=== PATIENT | female | born 1980 | race Caucasian/White ===

== ENCOUNTER 2016-07-07 21:04 | Emergency (ER) | payer BC ==
--- NOTE | 2016-07-07 21:25 | EDM.PDOC ---
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 Past medical history: As per history of present illness and as reviewed below otherwise noncontributory. Surgical history: As per history of present illness and as reviewed below otherwise noncontributory. Social history: No reported history of drug or alcohol abuse. Family history: As per history of present illness and as reviewed below otherwise noncontributory. Physical exam: HEENT: Atraumatic, normocephalic, pupils reactive, negative for conjunctival pallor or scleral icterus, mucous membranes moist, throat clear, neck supple, nontender, trachea midline. Lungs: Clear to auscultation, breath sounds equal bilaterally, chest nontender. Heart: S1S2, regular, negative for clicks, rubs, or JVD. Abdomen: Soft, nondistended, nontender. Negative for masses or hepatosplenomegaly. Negative for costovertebral tenderness. Pelvis: Stable nontender. Genitourinary: Deferred. Rectal: Deferred. Extremities: Atraumatic, negative for cords or calf pain. Neurovascular unremarkable. Neuro: Awake, alert, oriented. Cranial nerves II through XII unremarkable. Cerebellum unremarkable. Motor and sensory unremarkable throughout. Exam nonfocal. Diagnostics: [] Lab as below Chest one view Therapeutics: [] Liter normal saline bolus Solu-Cortef 100 mg IV Levaquin 500 mg by mouth no Levaquin 500 mg by mouth daily #10 no refill Impression: [] UTI Fever Chronic history at baseline Definitive disposition and diagnosis as appropriate pending reevaluation and review of above. 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 - Past Surgical History Other Female Surgeries/Procedures: CS X3, 1 exploratory lap Social & Family History - Family History Family Medical History: Noncontributory - Tobacco Use Smoking Status *Q: Never Smoker Second Hand Smoke Exposure: No - Recreational Drug Use Recreational Drug Use: No ED ROS GENERAL - Review of Systems Review Of Systems: See Below ED EXAM, GENERAL - Physical Exam Exam: See Below Course - Vital Signs Last Recorded V/S: Last Vital Signs Temp 37.4 C 07/07/16 23:39 Pulse 88 07/07/16 23:39 Resp 16 07/07/16 23:39 BP 115/60 07/07/16 23:39 Pulse Ox 99 07/07/16 23:39 - Orders/Labs/Meds Orders: Active Orders 24 hr Category Date Time Status Chest 1V Frontal [CR] Stat Exams 07/07/16 22:05 Taken Chest w Cont [CT] Stat Exams 07/07/16 23:06 Taken CULTURE BLOOD [BC] Stat Lab 07/07/16 22:23 Received CULTURE BLOOD [BC] Stat Lab 07/07/16 22:35 Received CULTURE STREP A CONFIRMATION [RM] Stat Lab 07/07/16 21:30 Results CULTURE URINE [RM] Stat Lab 07/07/16 22:30 Received STREP SCRN A RAPID W CULT CONF [RM] Stat Lab 07/07/16 21:30 Results Blood Culture x2 Reflex Set [OM.PC] Stat Oth 07/07/16 22:13 Ordered Labs: Laboratory Tests 07/07/16 07/07/16 07/07/16 Range/Units 21:40 21:40 22:30 WBC 6.82 (4.0-11.0) K/uL RBC 4.01 L (4.30-5.90) M/uL Hgb 12.3 (12.0-16.0) g/dL Hct 36.2 (36.0-46.0) % MCV 90.3 (80.0-98.0) fL MCH 30.7 (27.0-32.0) pg MCHC 34.0 (31.0-37.0) g/dL RDW Std Deviation 43.3 (28.0-62.0) fl RDW Coeff of Nanci 13 (11.0-15.0) % Plt Count 217 (150-400) K/uL MPV 11.10 (7.40-12.00) fL Neut % (Auto) 73.9 (48.0-80.0) % Lymph % (Auto) 18.5 (16.0-40.0) % [place] % (Auto) 6.9 (0.0-15.0) % Eos % (Auto) 0.1 (0.0-7.0) % Baso % (Auto) 0.6 (0.0-1.5) % Neut # 5.0 (1.4-5.7) K/uL Lymph # 1.3 (0.6-2.4) K/uL [place] # 0.5 (0.0-0.8) K/uL Eos # 0.0 (0.0-0.7) K/uL Baso # 0.0 (0.0-0.1) K/uL Nucleated RBC % 0.0 /100WBC Nucleated RBCs # 0 K/uL Sodium 139 (136-146) mmol/L Potassium 3.6 (3.5-5.1) mmol/L Chloride 107 (98-110) mmol/L Carbon Dioxide 24 (21-31) mmol/L BUN 16 (6.0-23.0) mg/dL Creatinine 0.9 (0.6-1.5) mg/dL Est Cr Clr Drug Dosing 97.80 mL/min Estimated GFR (MDRD) > 60.0 ml/min Glucose 94 (60-110) mg/dL Calcium 8.8 (8.8-10.8) mg/dL Total Bilirubin 0.6 (0.1-1.5) mg/dL AST 18 (5-40) IU/L ALT 14 (8-54) IU/L Alkaline Phosphatase 38 L (40-150) Total Protein 6.6 (6.0-8.0) g/dL Albumin 3.9 (3.5-5.0) g/dL Globulin 2.7 (2.0-3.5) g/dL Albumin/Globulin Ratio 1.4 (1.3-2.8) Urine Color YELLOW Urine Appearance CLEAR Urine pH 7.0 (5.0-8.0) Ur Specific [place] 1.020 (1.001-1.035) Urine Protein NEGATIVE (NEGATIVE) mg/dL Urine Glucose (UA) NEGATIVE (NEGATIVE) mg/dL Urine Ketones NEGATIVE (NEGATIVE) mg/dL Urine Occult Blood TRACE-LYSED (NEGATIVE) Urine Nitrite POSITIVE H (NEGATIVE) Urine Bilirubin NEGATIVE (NEGATIVE) Urine Urobilinogen 1.0 (<2.0) EU/dL Ur Leukocyte Esterase SMALL (NEGATIVE) Urine RBC 0-1 (0-2/HPF) Urine WBC 0-1 (0-5/HPF) Ur Epithelial Cells FEW (NONE-FEW) Urine Bacteria 2+ H (NEGATIVE) Meds: Medications Discontinued Medications Generic Name Dose Route Start Last Admin Trade Name Freq PRN Reason Stop Dose Admin Acetaminophen 1,000 mg 07/07/16 21:33 07/07/16 21:50 Tylenol Extra Strength PO 07/07/16 21:34 1,000 mg ONETIME ONE Administration Hydrocortisone Sodium Succinate 100 mg 07/07/16 21:38 07/07/16 21:51 Solu-Cortef IVPUSH 07/07/16 21:39 100 mg ONETIME ONE Administration Sodium Chloride 1,000 mls @ 999 mls/hr 07/07/16 21:38 07/07/16 21:52 Normal Saline IV 07/07/16 22:38 999 mls/hr STAT ONE Administration Iopamidol 50 ml 07/07/16 23:10 Isovue-370 (76%) IVPUSH 07/07/16 23:11 ONETIME STA Levofloxacin 500 mg 07/07/16 23:17 07/07/16 23:38 Levaquin PO 07/07/16 23:18 500 mg ONETIME ONE Administration Departure - Departure Time of Disposition: 00:20 Disposition: Home, Self-Care 01 Condition: good Clinical Impression: UTI (urinary tract infection) Referrals: PCP,None [Primary Care Provider] - Forms: ED Department Discharge Additional Instructions: Medication as prescribed Return if symptoms persist or worsen or new concerning symptomatology develops Continue current home medications as directed Followup with primary care as needed The following information is given to patients seen in the emergency department who are being discharged to home. This information is to outline your options for follow-up care. We provide all patients seen in our emergency department with a follow-up referral. The need for follow-up, as well as the timing and circumstances, are variable depending upon the specifics of your emergency department visit. If you don't have a primary care physician on staff, we will provide you with a referral. We always advise you to contact your personal physician following an emergency department visit to inform them of the circumstance of the visit and for follow-up with them and/or the need for any referrals to a consulting specialist. The emergency department will also refer you to a specialist when appropriate. This referral assures that you have the opportunity for follow-up care with a specialist. All of these measure are taken in an effort to provide you with optimal care, which includes your follow-up. Under all circumstances we always encourage you to contact your private physician who remains a resource for coordinating your care. When calling for follow-up care, please make the office aware that this follow-up is from your recent emergency room visit. If for any reason you are refused follow-up, please contact the [facility] emergency department at and asked to speak to the emergency department charge nurse. - My Orders Last 24 Hours: My Active Orders 07/07/16 21:30 CULTURE STREP A CONFIRMATION [RM] Stat STREP SCRN A RAPID W CULT CONF [RM] Stat 07/07/16 22:05 Chest 1V Frontal [CR] Stat 07/07/16 22:13 Blood Culture x2 Reflex Set [OM.PC] Stat 07/07/16 22:23 CULTURE BLOOD [BC] Stat 07/07/16 22:30 CULTURE URINE [RM] Stat 07/07/16 22:35 CULTURE BLOOD [BC] Stat 07/07/16 23:06 Chest w Cont [CT] Stat - Assessment/Plan Last 24 Hours: My Active Orders 07/07/16 21:30 CULTURE STREP A CONFIRMATION [RM] Stat STREP SCRN A RAPID W CULT CONF [RM] Stat 07/07/16 22:05 Chest 1V Frontal [CR] Stat 07/07/16 22:13 Blood Culture x2 Reflex Set [OM.PC] Stat 07/07/16 22:23 CULTURE BLOOD [BC] Stat 07/07/16 22:30 CULTURE URINE [RM] Stat 07/07/16 22:35 CULTURE BLOOD [BC] Stat 07/07/16 23:06 Chest w Cont [CT] Stat
[2016-07-07] MEDS ORDERED: Acetaminophen 500 MG Tab PO ONE (21:33)
[2016-07-07] MEDS ORDERED: Hydrocortisone Sodium Succinate 100 MG/2 ML SDV IVPUSH ONE (21:38)
[2016-07-07] MEDS ORDERED: Sodium Chloride 0.9% 1,000 ML IV ONE (21:38)
[2016-07-07 22:06] LABS: CHLORIDE,CL 107 mmol/L (98-110); SODIUM,NA 139 mmol/L (136-146)
[2016-07-07] MEDS ORDERED: Iopamidol 755 Mg/ML 75 ML Bottle IVPUSH STA (23:10)
[2016-07-07] MEDS ORDERED: Levofloxacin 500 MG Tab PO ONE (23:17)
[2016-07-08 01:29] VITALS: BP 106/56
--- NOTE | 2016-07-08 15:50 | CR ---
EXAM DATE: 07/07/16 PATIENT'S AGE: 36 Patient: ALECIA COLEMAN Facility: [place], [place] Site . Site : 1980 Study: XRay Chest [id number]/2/2017 10:34:13 PM Ordering Physician: Lin Woodruff Final Report: Indication: Shortness of breath. Fever. Chest pain. Technique: Chest 1 view Comparison: 09/06/2011. Findings/Impression: Cardiovascular and mediastinum: Heart size and vasculature are normal in caliber and appearance. Mediastinum is within normal limits. Lungs and pleural space: No pleural effusions. Mildly increased interstitial markings. A 3.2 x 2.8 centimeter annular opacity in the right lung base suggestive of a cavitary lesion. Correlate with CT scan. Bones and soft tissues: No significant change. Dictated by Jeff Contreras MD @ 07/07/2016 10:40:00 PM Dictated by: Jeff Contreras MD @ 07/07/2016 22:40:10 (Electronic Signature) Report Signed by Proxy and Original Signed Document filed in the Medical Record. MTDD
--- NOTE | 2016-07-08 16:10 | CT ---
EXAM DATE: 07/07/16 PATIENT'S AGE: 36 Patient: ALECIA COLEMAN Facility: [place], [place] Site . Site : 1980 Study: CT Chest [id number]/2/2017 11:42:03 PM Ordering Physician: Lin Woodruff Final Report: INDICATION: COUGH/FEVER/SOB CT CHEST WITH CONTRAST TECHNIQUE: Multidetector CT imaging was performed through the chest following intravenous contrast administration using 50 mL Isovue 370. Coronal and sagittal reconstructions were generated. COMPARISON: None. FINDINGS: Lungs and airways: No infiltrates, nodules, or masses. Very mild biapical lung scarring, right slightly greater than left. Central airways are patent. No hilar lymphadenopathy. Pleura and pleural spaces: No pleural effusions or pneumothorax. Heart and mediastinum: Normal heart size. No significant pericardial effusion. No mediastinal lymphadenopathy. Vascular structures: Normal caliber thoracic aorta. Chest wall and axillae: No mass or axillary lymphadenopathy. Osseous structures: Normal for age. No acute fractures identified. Upper abdomen: Unremarkable. IMPRESSION: 1. No acute intrathoracic abnormality identified. 2. Very mild biapical lung scarring. WINTER MEZA MD [employer] Dictated by Earnest Meza MD @ 07/07/2016 11:50:58 PM Dictated by: Earnest Meza MD @ 07/07/2016 23:51:20 (Electronic Signature) Report Signed by Proxy and Original Signed Document filed in the Medical Record. [facility]ITAL[facility]ap[facility]
== END 2016-07-08 00:31 | disposition home or self-care (01) ==
LOC: MW.ED 21:04
DX: N39.0 Urinary tract infection, site not specified (principal); Z79.899 Other long term (current) drug therapy
CPT/HCPCS: 36415; 71010; 71260; 80053; 81001; 85025; 87040; 87081; 87086; 87088; 87186; 87804; 87880; 96361; 96374; 99284; A9270; J1720; J7040

== ENCOUNTER 2017-08-06 00:19 | Emergency (ER) | payer BC ==
[2017-08-06 00:28] VITALS: BP 115/69
--- NOTE | 2017-08-06 00:33 | EDM.PDOC ---
ED HPI GENERAL MEDICAL PROBLEM - General Chief Complaint: ENT Problem Stated Complaint: SORE THROAT Time Seen by Provider: 08/06/17 00:32 - History of Present Illness INITIAL COMMENTS - FREE TEXT/NARRATIVE: HISTORY AND PHYSICAL: History of present illness: Patient 37-year-old female presents concern of sore throat tactile fever worse over the last 24-48 hours Review of systems: As per history of present illness and below otherwise all systems reviewed and negative. Past medical history: As per history of present illness and as reviewed below otherwise noncontributory. Surgical history: As per history of present illness and as reviewed below otherwise noncontributory. Social history: No reported history of drug or alcohol abuse. Family history: As per history of present illness and as reviewed below otherwise noncontributory. Physical exam: HEENT: Atraumatic, normocephalic, pupils reactive, negative for conjunctival pallor or scleral icterus, mucous membranes moist, throat injected no peritonsillar fullness no ovular deviation no hot potato voice no trismus, neck supple, nontender, trachea midline. Lungs: Clear to auscultation, breath sounds equal bilaterally, chest nontender. Heart: S1S2, regular, negative for clicks, rubs, or JVD. Abdomen: Soft, nondistended, nontender. Negative for masses or hepatosplenomegaly. Negative for costovertebral tenderness. Pelvis: Stable nontender. Genitourinary: Deferred. Rectal: Deferred. Extremities: Atraumatic, negative for cords or calf pain. Neurovascular unremarkable. Neuro: Awake, alert, oriented. Cranial nerves II through XII unremarkable. Cerebellum unremarkable. Motor and sensory unremarkable throughout. Exam nonfocal. Diagnostics: Deferred Therapeutics: None Impression: #1 pharyngitis Definitive disposition and diagnosis as appropriate pending reevaluation and review of above. throat Pain Score (Numeric/FACES): 10 - Related Data Allergies Allergy/AdvReac Type Severity Reaction Status Date / Time No Known Allergies Allergy Verified 08/06/17 00:28 Home Meds: Home Meds Fludrocortisone [Florinef] 0.1 mg PO DAILY 02/22/15 [History] Hydrocortisone 20 mg PO DAILY 02/22/15 [History] Prasterone (DHEA)/Calcium Carb [DHEA] 1 tab PO DAILY 07/07/16 [History] Past Medical History - Past Health History Medical/Surgical History: Denies Medical/Surgical History [employer] History: Reports: Endocrine/Metabolic History: Reports: [place]'s Disease Other Endocrine/Metabolic History: Ernie's disease - Past Surgical History Other Female Surgeries/Procedures: CS X3, 1 exploratory lap Social & Family History - Family History Family Medical History: Noncontributory - Tobacco Use Smoking Status *Q: Never Smoker Second Hand Smoke Exposure: No - Caffeine Use Caffeine Use: Reports: Coffee Caffeine Use Comment: 1cup/day - Recreational Drug Use Recreational Drug Use: No ED ROS GENERAL - Review of Systems Review Of Systems: ROS reveals no pertinent complaints other than HPI. ED EXAM, GENERAL - Physical Exam Exam: See Below (See dictation) Course - Vital Signs Last Recorded V/S: Last Vital Signs Temp 36.1 C 08/06/17 00:25 Pulse 85 08/06/17 00:25 Resp 18 08/06/17 00:25 BP 115/69 08/06/17 00:25 Pulse Ox 100 08/06/17 00:25 Departure - Departure Time of Disposition: 00:31 Disposition: Home, Self-Care 01 Condition: Good Clinical Impression: Pharyngitis - Discharge Information Referrals: PCP,None [Primary Care Provider] - Additional Instructions: The following information is given to patients seen in the emergency department who are being discharged to home. This information is to outline your options for follow-up care. We provide all patients seen in our emergency department with a follow-up referral. The need for follow-up, as well as the timing and circumstances, are variable depending upon the specifics of your emergency department visit. If you don't have a primary care physician on staff, we will provide you with a referral. We always advise you to contact your personal physician following an emergency department visit to inform them of the circumstance of the visit and for follow-up with them and/or the need for any referrals to a consulting specialist. The emergency department will also refer you to a specialist when appropriate. This referral assures that you have the opportunity for followup care with a specialist. All of these measure are taken in an effort to provide you with optimal care, which includes your followup. Under all circumstances we always encourage you to contact your private physician who remains a resource for coordinating your care. When calling for followup care, please make the office aware that this follow-up is from your recent emergency room visit. If for any reason you are refused follow-up, please contact the [facility] emergency department at and asked to speak to the emergency department charge nurse. Augmentin is prescribed Tylenol as directed follow-up primary medical doctor return as needed as discussed
== END 2017-08-06 00:40 | disposition home or self-care (01) ==
LOC: MW.ED 00:19
DX: J02.9 Acute pharyngitis, unspecified (principal); Z79.899 Other long term (current) drug therapy
CPT/HCPCS: 99282

== ENCOUNTER 2017-08-06 09:44 | Emergency (ER) | payer BC ==
[2017-08-06] MEDS ORDERED: Ondansetron 4 MG Tab.DIS PO ONE (10:02)
[2017-08-06] MEDS ORDERED: Sodium Chloride 0.9% 10 ML Syringe FLUSH PRN (10:04)
[2017-08-06] MEDS ORDERED: Sodium Chloride 0.9% 2.5 ML Syringe FLUSH PRN (10:04)
[2017-08-06] MEDS ORDERED: Sodium Chloride 0.9% 500 ML IV ONE (10:05)
[2017-08-06] MEDS ORDERED: Ondansetron 4 MG/2 ML SDV IVPUSH ONE (10:05)
[2017-08-06] MEDS ORDERED: Ketorolac 30 MG/ML SDV IVPUSH ONE (10:20)
[2017-08-06] MEDS ORDERED: methylPREDNISolone Sodium Succinate 125 MG/2 ML SDV IVPUSH ONE (10:27)
[2017-08-06] MEDS ORDERED: Sodium Chloride 0.9% 500 ML IV SCH (10:30)
[2017-08-06 10:53] LABS: CHLORIDE,CL 104 mmol/L (98-107); SODIUM,NA 139 mmol/L (136-145)
--- NOTE | 2017-08-06 11:49 | EDM.PDOC ---
ED HPI GENERAL MEDICAL PROBLEM - General Chief Complaint: ENT Problem Stated Complaint: strep throat,vomitng Time Seen by Provider: 08/06/17 09:56 Source of Information: Reports: Patient History Limitations: Reports: No Limitations - History of Present Illness INITIAL COMMENTS - FREE TEXT/NARRATIVE: History of present illness: []Patient was seen last night for sore throat and started having vomiting and diarrhea shortly after. She was put on Augmentin had one dose but vomited and now feels very weak and tired. Patient has a history of Ernie's disease and is concerned that she was unable to take her steroids at home this morning. Review of systems: As per history of present illness and below otherwise all systems reviewed and negative. Past medical history: As per history of present illness and as reviewed below otherwise noncontributory. Surgical history: As per history of present illness and as reviewed below otherwise noncontributory. Social history: No reported history of drug or alcohol abuse. Family history: As per history of present illness and as reviewed below otherwise noncontributory. Physical exam: General: Well developed, well nourished in NAD HEENT: Atraumatic, normocephalic, pupils reactive, negative for conjunctival pallor or scleral icterus, mucous membranes moist, throat clear, neck supple, nontender, trachea midline. Lungs: Clear to auscultation, breath sounds equal bilaterally, chest nontender. Heart: S1S2, regular, negative for clicks, rubs, or JVD. Abdomen: Soft, nondistended, nontender. Negative for masses or hepatosplenomegaly. Negative for costovertebral tenderness. Pelvis: Stable nontender. Genitourinary: Deferred. Rectal: Deferred. Extremities: Atraumatic, negative for cords or calf pain. Neurovascular unremarkable. Neuro: Awake, alert, oriented. Cranial nerves II through XII unremarkable. Cerebellum unremarkable. Motor and sensory unremarkable throughout. Exam nonfocal. Diagnostics: []CBC elevated, chemistry normal strep was checked and was negative lactate normal Therapeutics: []Normal saline 500 L bolus given with Zofran and patient tolerated by mouth's after this. Impression: []Acute pharyngitis, vomiting diarrhea Plan: []Zofran, tramadol, continue Augmentin and increase fluids, Definitive disposition and diagnosis as appropriate pending reevaluation and review of above. 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: Endocrine/Metabolic History: Reports: [place]'s Disease Other Endocrine/Metabolic History: [place]'s disease - Past Surgical History Other Female Surgeries/Procedures: CS X3, 1 exploratory lap Social & Family History - Family History Family Medical History: Noncontributory - Tobacco Use Smoking Status *Q: Never Smoker Second Hand Smoke Exposure: No - Caffeine Use Caffeine Use: Reports: Other Caffeine Use Comment: 1cup/day - Recreational Drug Use Recreational Drug Use: No ED ROS GENERAL - Review of Systems Review Of Systems: See Below (See history of present illness) ED EXAM, GENERAL - Physical Exam Exam: See Below (See history of present illness) Course - Vital Signs Last Recorded V/S: Last Vital Signs Temp 96.6 F 08/06/17 09:58 Pulse 79 08/06/17 09:58 Resp 18 08/06/17 09:58 BP 143/70 H 08/06/17 09:58 Pulse Ox 99 08/06/17 09:58 - Orders/Labs/Meds Orders: Active Orders 24 hr Category Date Time Status CULTURE STREP A CONFIRMATION [] Stat Lab 08/06/17 10:20 Results STREP SCRN A RAPID W CULT CONF [] Stat Lab 08/06/17 10:20 Ordered Sodium Chloride 0.9% [Normal Saline] 500 ml Med 08/06/17 10:30 Active IV .BOLUS Sodium Chloride 0.9% [Saline Flush] Med 08/06/17 10:04 Active 10 ml FLUSH ASDIRECTED PRN Sodium Chloride 0.9% [Saline Flush] Med 08/06/17 10:04 Active 2.5 ml FLUSH ASDIRECTED PRN Saline Lock Insert [OM.PC] Stat Oth 08/06/17 10:04 Ordered Medication Orders Sodium Chloride (Normal Saline) 500 mls @ 999 mls/hr IV .BOLUS RUDDY Last Admin: 08/06/17 10:18 Dose: 999 mls/hr Sodium Chloride (Saline Flush) 10 ml FLUSH ASDIRECTED PRN PRN Reason: Keep Vein Open Sodium Chloride (Saline Flush) 2.5 ml FLUSH ASDIRECTED PRN PRN Reason: Keep Vein Open Labs: Laboratory Tests 08/06/17 08/06/17 08/06/17 Range/Units 10:15 10:15 10:59 WBC 13.58 H (4.0-11.0) K/uL RBC 4.50 (4.30-5.90) M/uL Hgb 13.7 (12.0-16.0) g/dL Hct 40.2 (36.0-46.0) % MCV 89.3 (80.0-98.0) fL MCH 30.4 (27.0-32.0) pg MCHC 34.1 (31.0-37.0) g/dL RDW Std Deviation 43.0 (28.0-62.0) fl RDW Coeff of Nanci 13 (11.0-15.0) % Plt Count 175 (150-400) K/uL MPV 10.80 (7.40-12.00) fL Neut % (Auto) 86.7 H (48.0-80.0) % Lymph % (Auto) 6.2 L (16.0-40.0) % [place] % (Auto) 6.3 (0.0-15.0) % Eos % (Auto) 0.7 (0.0-7.0) % Baso % (Auto) 0.1 (0.0-1.5) % Neut # (Auto) 11.8 H (1.4-5.7) K/uL Lymph # (Auto) 0.8 (0.6-2.4) K/uL [place] # (Auto) 0.9 H (0.0-0.8) K/uL Eos # (Auto) 0.1 (0.0-0.7) K/uL Baso # (Auto) 0.0 (0.0-0.1) K/uL Nucleated RBC % 0.0 /100WBC Nucleated RBCs # 0 K/uL Lactate 0.5 (0.20-2.00) mmol/L Sodium 139 (136-145) mmol/L Potassium 4.0 (3.5-5.1) mmol/L Chloride 104 (98-107) mmol/L Carbon Dioxide 25.8 (21.0-32.0) mmol/L BUN 11 (7.0-18.0) mg/dL Creatinine 0.8 (0.6-1.0) mg/dL Est Cr Clr Drug Dosing TNP Estimated GFR (MDRD) > 60.0 ml/min Glucose 78 (74-106) mg/dL Calcium 8.5 (8.5-10.1) mg/dL Total Bilirubin 1.0 (0.2-1.0) mg/dL AST 53 H (15-37) IU/L ALT 38 (14-63) IU/L Alkaline Phosphatase 63 (46-116) U/L Total Protein 6.6 (6.4-8.2) g/dL Albumin 3.2 L (3.4-5.0) g/dL Globulin 3.4 (2.0-3.5) g/dL Albumin/Globulin Ratio 0.9 L (1.3-2.8) Meds: Medications Generic Name Dose Route Start Last Admin Trade Name Freq PRN Reason Stop Dose Admin Sodium Chloride 500 mls @ 999 mls/hr 08/06/17 10:30 08/06/17 10:18 Normal Saline IV 999 mls/hr .BOLUS RUDDY Administration Sodium Chloride 10 ml 08/06/17 10:04 Saline Flush FLUSH ASDIRECTED PRN Keep Vein Open Sodium Chloride 2.5 ml 08/06/17 10:04 Saline Flush FLUSH ASDIRECTED PRN Keep Vein Open Discontinued Medications Generic Name Dose Route Start Last Admin Trade Name Freq PRN Reason Stop Dose Admin Sodium Chloride 500 mls @ 999 mls/hr 08/06/17 10:05 08/06/17 10:21 Normal Saline IV 08/06/17 10:35 Not Given .Bolus ONE Ketorolac Tromethamine 30 mg 08/06/17 10:20 08/06/17 10:26 Toradol IVPUSH 08/06/17 10:21 30 mg ONETIME ONE Administration Methylprednisolone Sodium Succinate 125 mg 08/06/17 10:27 08/06/17 10:31 Solu-Medrol IVPUSH 08/06/17 10:28 125 mg ONETIME ONE Administration Ondansetron HCl 4 mg 08/06/17 10:02 08/06/17 10:21 Zofran Odt PO 08/06/17 10:03 Not Given ONETIME ONE Ondansetron HCl 4 mg 08/06/17 10:05 08/06/17 10:16 Zofran IVPUSH 08/06/17 10:06 4 mg ONETIME ONE Administration Departure - Departure Time of Disposition: 11:50 Disposition: Home, Self-Care 01 Condition: Good Clinical Impression: Pharyngitis, Vomiting and diarrhea - Discharge Information Referrals: PCP,None [Primary Care Provider] - Additional Instructions: The following information is given to patients seen in the emergency department who are being discharged to home. This information is to outline your options for follow-up care. We provide all patients seen in our emergency department with a follow-up referral. The need for follow-up, as well as the timing and circumstances, are variable depending upon the specifics of your emergency department visit. If you don't have a primary care physician on staff, we will provide you with a referral. We always advise you to contact your personal physician following an emergency department visit to inform them of the circumstance of the visit and for follow-up with them and/or the need for any referrals to a consulting specialist. The emergency department will also refer you to a specialist when appropriate. This referral assures that you have the opportunity for follow-up care with a specialist. All of these measure are taken in an effort to provide you with optimal care, which includes your follow-up. Under all circumstances we always encourage you to contact your private physician who remains a resource for coordinating your care. When calling for follow-up care, please make the office aware that this follow-up is from your recent emergency room visit. If for any reason you are refused follow-up, please contact the [facility] Emergency Department at and asked to speak to the emergency department charge nurse. Zofran, tramadol, as fluids, follow-up with PMD [facility] [address] [place] [id number] - My Orders Last 24 Hours: My Active Orders 08/06/17 10:04 Sodium Chloride 0.9% [Saline Flush] 10 ml FLUSH ASDIRECTED PRN Sodium Chloride 0.9% [Saline Flush] 2.5 ml FLUSH ASDIRECTED PRN Saline Lock Insert [OM.PC] Stat 08/06/17 10:20 CULTURE STREP A CONFIRMATION [RM] Stat STREP SCRN A RAPID W CULT CONF [RM] Stat 08/06/17 10:30 Sodium Chloride 0.9% [Normal Saline] 500 ml IV .BOLUS - Assessment/Plan Last 24 Hours: My Active Orders 08/06/17 10:04 Sodium Chloride 0.9% [Saline Flush] 10 ml FLUSH ASDIRECTED PRN Sodium Chloride 0.9% [Saline Flush] 2.5 ml FLUSH ASDIRECTED PRN Saline Lock Insert [OM.PC] Stat 08/06/17 10:20 CULTURE STREP A CONFIRMATION [RM] Stat STREP SCRN A RAPID W CULT CONF [RM] Stat 08/06/17 10:30 Sodium Chloride 0.9% [Normal Saline] 500 ml IV .BOLUS
[2017-08-06 12:07] VITALS: BP 103/53
== END 2017-08-06 12:04 | disposition home or self-care (01) ==
LOC: MW.ED 09:44
DX: J02.9 Acute pharyngitis, unspecified (principal); R19.7 Diarrhea, unspecified; R11.10 Vomiting, unspecified; Z79.899 Other long term (current) drug therapy
CPT/HCPCS: 36415; 80053; 83605; 85025; 87081; 87880; 96361; 96374; 96375; 99282; 99284; J1885; J2405; J2930; J7040; 99283

== ENCOUNTER 2018-06-18 01:44 | Emergency (ER) | payer BC ==
--- NOTE | 2018-06-18 02:17 | EDM.PDOC ---
ED HPI GENERAL MEDICAL PROBLEM - General Chief Complaint: Respiratory Problem Stated Complaint: BAD COLD, HAS PILAR'S DISEASE Time Seen by Provider: 06/18/18 02:04 - History of Present Illness INITIAL COMMENTS - FREE TEXT/NARRATIVE: HISTORY AND PHYSICAL: History of present illness: The patient is a 38-year-old female with a known history of [place]'s disease that presents with 2 days of cough occasionally productive of some phlegm chest congestion malaise subjective fevers and chills and now posttussive vomiting that started this evening. The patient says she follows with a specialist in [place] for her [place]'s but does not have a local doctor as a lot of physicians don't feel comfortable with [place]'s patients and she has not had luck finding a connection. She says that she feels like her [place]'s is under good control and she is not dehydrated and does not feel like that is in play but she does want some help with recommendations for medications as well as something for her cough. She says that now the coughing is causing her to gag and vomit that could potentially complicate her Pilar's and she doesn't want that to start. She denies and did not get her flu shot this year. She has no abdominal pain no urinary difficulties or problems and no diarrhea. She has no sore throat or nasal congestion or sinus pain. Review of systems: As per history of present illness and below otherwise all systems reviewed and negative. Past medical history: As per history of present illness and as reviewed below otherwise noncontributory. Surgical history: As per history of present illness and as reviewed below otherwise noncontributory. Social history: No reported history of drug or alcohol abuse. Family history: As per history of present illness and as reviewed below otherwise noncontributory. Physical exam: General: Well-developed well-nourished female who is nontoxic and vital signs were noted by me. HEENT: Atraumatic, normocephalic, negative for conjunctival pallor or scleral icterus, mucous membranes moist, throat clear, neck supple, nontender, trachea midline. There is no cervical adenopathy or nuchal rigidity Lungs: Clear to auscultation, breath sounds equal bilaterally, chest nontender. There is some diminished breath sounds in the bases but no wheezing stridor or work of breathing Heart: S1S2, regular rate and rhythm no overt murmurs Abdomen: Soft, nondistended, nontender. Negative for masses or hepatosplenomegaly. NABS Pelvis: Stable nontender. Genitourinary: Deferred. Rectal: Deferred. Extremities: Atraumatic, full range of motion without defects or deficits Neurovascular unremarkable. Neuro: Awake, alert, oriented. Cranial nerves II through XII unremarkable. Cerebellum unremarkable. Motor and sensory unremarkable throughout. Exam nonfocal. Diagnostics: Influenza chest x-ray Patient was offered lab evaluation and she declines at this time Therapeutics: Patient was offered IV fluids but feels that she is doing well on her hydration. Impression: URI with persistent cough and history of Pilar's disease stable Definitive disposition and diagnosis as appropriate pending reevaluation and review of above. 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: Endocrine/Metabolic History: Reports: [place]'s Disease Other Endocrine/Metabolic History: [place]'s disease - Past Surgical History Female Surgical History: Reports: Section Other Female Surgeries/Procedures: CS X3, 1 exploratory lap Social & Family History - Family History Family Medical History: Noncontributory - Tobacco Use Smoking Status *Q: Never Smoker - Caffeine Use Caffeine Use: Reports: Other Caffeine Use Comment: 1cup/day - Recreational Drug Use Recreational Drug Use: No ED ROS GENERAL - Review of Systems Review Of Systems: ROS reveals no pertinent complaints other than HPI. ED EXAM, GENERAL - Physical Exam Exam: See Below (See dictation) Course - Vital Signs Last Recorded V/S: Last Vital Signs Temp 36.5 C 06/18/18 01:51 Pulse 72 06/18/18 01:51 Resp 16 06/18/18 01:51 BP 113/73 06/18/18 01:51 Pulse Ox 95 06/18/18 01:51 Departure - Departure Time of Disposition: 02:47 Disposition: Home, Self-Care 01 Condition: Good Clinical Impression: URI (upper respiratory infection) Qualifiers: URI type: unspecified URI Qualified Code(s): J06.9 - Acute upper respiratory infection, unspecified - Discharge Information Referrals: PCP,None [Primary Care Provider] - Forms: ED Department Discharge Additional Instructions: The following information is given to patients seen in the emergency department who are being discharged to home. This information is to outline your options for follow-up care. We provide all patients seen in our emergency department with a follow-up referral. The need for follow-up, as well as the timing and circumstances, are variable depending upon the specifics of your emergency department visit. If you don't have a primary care physician on staff, we will provide you with a referral. We always advise you to contact your personal physician following an emergency department visit to inform them of the circumstance of the visit and for follow-up with them and/or the need for any referrals to a consulting specialist. The emergency department will also refer you to a specialist when appropriate. This referral assures that you have the opportunity for followup care with a specialist. All of these measure are taken in an effort to provide you with optimal care, which includes your followup. Under all circumstances we always encourage you to contact your private physician who remains a resource for coordinating your care. When calling for followup care, please make the office aware that this follow-up is from your recent emergency room visit. If for any reason you are refused follow-up, please contact the [facility] emergency department at and ask to speak to the emergency department charge nurse. [facility] Primary [facility]- Internal Medicine and Family [address] [id number] Push hydration and use [id number] medications as we discussed for fevers and cough. Use medications as prescribed to help you get some rest from your cough. Please call the clinic later this morning and schedule a follow-up appointment with the family practice clinic for further care and evaluation and return to ER as needed and as discussed. You have been given Phenergan with codeine from [employer]
--- NOTE | 2018-06-18 02:43 | CR ---
HISTORY: Chest pain COMPARISON: 07/07/2016 FINDINGS: A single erect AP view of the chest was obtained at 0217 hours. The lungs remain clear. No focal or diffuse infiltrates are present. The heart remains normal in size. The mediastinum is normal in appearance. The osseous structures are normal in appearance for the patient`s age. IMPRESSION: Normal portable chest single view. Dictated by Hammad Simmons MD @ Jun 18 2018 2:39AM Signed by Dr. Hammad Simmons @ Jun 18 2018 2:42AM
[2018-06-18 03:01] VITALS: BP 100/60
== END 2018-06-18 02:55 | disposition home or self-care (01) ==
LOC: MW.ED 01:44
DX: J06.9 Acute upper respiratory infection, unspecified (principal); E27.1 Primary adrenocortical insufficiency; Z79.52 Long term (current) use of systemic steroids; Z79.899 Other long term (current) drug therapy
CPT/HCPCS: 71046; 71046-26; 87804; 99282; 99283

== ENCOUNTER 2018-07-09 16:18 | Emergency (ER) | payer BC ==
--- NOTE | 2018-07-09 16:21 | EDM.PDOC ---
ED HPI GENERAL MEDICAL PROBLEM - General Stated Complaint: COLD Time Seen by Provider: 07/09/18 16:18 Source of Information: Reports: Patient History Limitations: Reports: No Limitations - History of Present Illness INITIAL COMMENTS - FREE TEXT/NARRATIVE: HISTORY AND PHYSICAL: History of present illness: Patient is a 38-year-old female who presents to the ED today with concerns for cough and nasal congestion. Patient states that she initially was sick at the beginning of June, and presented to the ED for evaluation. Diagnosed with viral URI. She states she was getting better and was almost over her symptoms until Monday when she suddenly developed a cough and nasal congestion. Subjective fevers at home but has not checked a temperature. She has been taking [id number] medications for symptomatic relief. Patient denies chest pain, shortness of breath, headache, change in vision. Denies any abdominal pain, nausea, vomiting, diarrhea, constipation or dysuria. Denies any chance of . She has been eating and drinking appropriately. Patient does have a history of [place]und[place]'s disease and follows this up in [place]. 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 She has not had any dose adjustments of her steroids in many years. Currently has no concerns related to her Addisons Disease. Review of systems: As per history of present illness and below otherwise all systems reviewed and negative. Past medical history: As per history of present illness and as reviewed below otherwise noncontributory. Surgical history: As per history of present illness and as reviewed below otherwise noncontributory. Social history: See social history for further information Family history: As per history of present illness and as reviewed below otherwise noncontributory. Physical exam: General: Patient is alert, oriented, and in no acute distress. She is sitting comfortably on exam table. HEENT: Atraumatic, normocephalic, pupils equal and reactive bilaterally, negative for conjunctival pallor or scleral icterus, mucous membranes moist, TMs normal bilaterally, throat clear, neck supple, nontender, trachea midline. No drooling or trismus noted. No meningeal signs. No hot potato voice noted. Lungs: Coughing is elicited throughout exam. There is diffuse wheezing heard throughout all lung hamilton. Otherwise, breath sounds equal bilaterally, chest nontender. Heart: S1S2, regular rate and rhythm without overt murmur Abdomen: Soft, nondistended, nontender. Negative for masses or hepatosplenomegaly. Negative for costovertebral tenderness. Pelvis: Stable nontender. Genitourinary: Deferred. Rectal: Deferred. Skin: Intact, warm, dry. No lesions or rashes noted. Extremities: Atraumatic, negative for cords or calf pain. Neurovascular unremarkable. Neuro: Awake, alert, oriented. Cranial nerves II through XII unremarkable. Cerebellum unremarkable. Motor and sensory unremarkable throughout. Exam nonfocal. Notes: On exam, patient did have diffuse wheezing throughout all lung hamilton. Will do lab and imaging studies today. Will give DuoNeb. Vitals today are reassuring. Chest x-ray shows no acute findings. Patient does have a mildly elevated white count. Due to the patient's intermittent symptoms over the past 3 weeks I will treat with azithromycin and pro-air inhaler. Supportive care measures were reviewed and discussed. Voices understanding and is agreeable to plan of care. Denies any further questions or concerns at this time. Diagnostics: CBC, CMP, chest x-ray, influenza Therapeutics: DuoNeb Prescription: Azithromycin, Proair Impression: Bronchitis Plan: 1. Standard contact precautions (covering mouth while coughing, avoid sharing drinking cups and eating utensils). Please make sure you're doing good handwashing. 2. Please take medications as prescribed. 3. Supportive care measures such as Tylenol and/or ibuprofen for pain and fever management.Encourage small frequent sips of fluids to prevent dehydration. 4. Follow-up with your primary care provider in the next 1-2 days. Return to the ED as needed and as discussed. Definitive disposition and diagnosis as appropriate pending reevaluation and review of above. 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 ED EXAM, GENERAL - Physical Exam Exam: See Below (See dictation) Course - Vital Signs Last Recorded V/S: Last Vital Signs Temp 97.5 F 07/09/18 16:36 Pulse 76 07/09/18 16:36 Resp 16 07/09/18 16:36 BP 123/66 07/09/18 16:36 Pulse Ox 98 07/09/18 16:36 - Orders/Labs/Meds Orders: Active Orders 24 hr Category Date Time Status Chest 2V [CR] Stat Exams 07/09/18 16:44 Taken Labs: Laboratory Tests 07/09/18 07/09/18 Range/Units 17:50 17:50 WBC 11.74 H (4.0-11.0) K/uL RBC 4.28 L (4.30-5.90) M/uL Hgb 13.3 (12.0-16.0) g/dL Hct 38.9 (36.0-46.0) % MCV 90.9 (80.0-98.0) fL MCH 31.1 (27.0-32.0) pg MCHC 34.2 (31.0-37.0) g/dL RDW Std Deviation 42.6 (28.0-62.0) fl RDW Coeff of Nanci 13 (11.0-15.0) % Plt Count 304 (150-400) K/uL MPV 10.40 (7.40-12.00) fL Neut % (Auto) 75.4 (48.0-80.0) % Lymph % (Auto) 19.0 (16.0-40.0) % Dickson % (Auto) 4.9 (0.0-15.0) % Eos % (Auto) 0.4 (0.0-7.0) % Baso % (Auto) 0.3 (0.0-1.5) % Neut # (Auto) 8.9 H (1.4-5.7) K/uL Lymph # (Auto) 2.2 (0.6-2.4) K/uL Dickson # (Auto) 0.6 (0.0-0.8) K/uL Eos # (Auto) 0.1 (0.0-0.7) K/uL Baso # (Auto) 0.0 (0.0-0.1) K/uL Nucleated RBC % 0.0 /100WBC Nucleated RBCs # 0 K/uL Sodium 143 (136-145) mmol/L Potassium 4.0 (3.5-5.1) mmol/L Chloride 107 (98-107) mmol/L Carbon Dioxide 28.2 (21.0-32.0) mmol/L BUN 10 (7.0-18.0) mg/dL Creatinine 0.9 (0.6-1.0) mg/dL Est Cr Clr Drug Dosing 95.89 mL/min Estimated GFR (MDRD) > 60.0 ml/min Glucose 109 H (74-106) mg/dL Calcium 8.6 (8.5-10.1) mg/dL Total Bilirubin 0.6 (0.2-1.0) mg/dL AST 16 (15-37) IU/L ALT 19 (14-63) IU/L Alkaline Phosphatase 57 (46-116) U/L Total Protein 7.0 (6.4-8.2) g/dL Albumin 3.6 (3.4-5.0) g/dL Globulin 3.4 (2.6-4.0) g/dL Albumin/Globulin Ratio 1.1 (0.9-1.6) Departure - Departure Time of Disposition: 17:58 Disposition: Home, Self-Care 01 Clinical Impression: Bronchitis - Discharge Information Instructions: Acute Bronchitis, Adult, [id number] Referrals: PCP,Unknown [Primary Care Provider] - Additional Instructions: The following information is given to patients seen in the emergency department who are being discharged to home. This information is to outline your options for follow-up care. We provide all patients seen in our emergency department with a follow-up referral. The need for follow-up, as well as the timing and circumstances, are variable depending upon the specifics of your emergency department visit. If you don't have a primary care physician on staff, we will provide you with a referral. We always advise you to contact your personal physician following an emergency department visit to inform them of the circumstance of the visit and for follow-up with them and/or the need for any referrals to a consulting specialist. The emergency department will also refer you to a specialist when appropriate. This referral assures that you have the opportunity for follow-up care with a specialist. All of these measure are taken in an effort to provide you with optimal care, which includes your follow-up. Under all circumstances we always encourage you to contact your private physician who remains a resource for coordinating your care. When calling for follow-up care, please make the office aware that this follow-up is from your recent emergency room visit. If for any reason you are refused follow-up, please contact the Emergency Department at and asked to speak to the emergency department charge nurse. Primary Care [address] [place] [id number] [facility] [address] [place] [id number] 1. Standard contact precautions (covering mouth while coughing, avoid sharing drinking cups and eating utensils). Please make sure you're doing good handwashing. 2. Please take medications as prescribed. 3. Supportive care measures such as Tylenol and/or ibuprofen for pain and fever management.Encourage small frequent sips of fluids to prevent dehydration. 4. Follow-up with your primary care provider in the next 1-2 days. Return to the ED as needed and as discussed. - My Orders Last 24 Hours: My Active Orders 07/09/18 16:44 Chest 2V [CR] Stat - Assessment/Plan Last 24 Hours: My Active Orders 07/09/18 16:44 Chest 2V [CR] Stat
[2018-07-09 18:13] LABS: CHLORIDE,CL 107 mmol/L (98-107); SODIUM,NA 143 mmol/L (136-145)
[2018-07-09 18:28] VITALS: BP 104/66
--- NOTE | 2018-07-11 11:47 | CR ---
EXAM DATE: 07/09/18 PATIENT'S AGE: 38 Patient: ALECIA COLEMAN Facility: [facility] Site . Site : 1980 Study: XRay-Chest [id number]/5/2019 1:27:04 PM Ordering Physician: Candelaria Golden Final Report: INDICATION: Cough x3 weeks TECHNIQUE: Chest 2 views COMPARISON: June 18, 2018 FINDINGS: Cardiovascular and mediastinum: Heart size and vasculature are normal in caliber and appearance. Lungs and pleural spaces: Lungs are clear. No sign of infiltrate or mass. No sign of pleural effusion. No pneumothorax. Bones and soft tissues: No significant findings. IMPRESSION: No acute findings and no significant changes from the prior exam. Dictated by Hari Edwards MD @ Jul 10 2018 2:10PM Signed by: Hari Edwards MD @07/10/2018 2:11:22 PM (Electronic Signature) Report Signed by Proxy. LELA
== END 2018-07-09 18:25 | disposition home or self-care (01) ==
LOC: MW.ED 16:18
DX: J40 Bronchitis, not specified as acute or chronic (principal); Z79.899 Other long term (current) drug therapy
CPT/HCPCS: 36415; 71046; 71046-26; 80053; 85025; 87804; 99283; 99283-25

== ENCOUNTER 2019-05-19 10:33 | Emergency (ER) | payer BC ==
--- NOTE | 2019-05-19 10:45 | EDM.PDOC ---
ED HPI GENERAL MEDICAL PROBLEM - General Chief Complaint: Upper Extremity Injury/Pain Stated Complaint: RIGHT HAND INJURY Time Seen by Provider: 05/19/19 10:44 Source of Information: Reports: Patient History Limitations: Reports: No Limitations - History of Present Illness INITIAL COMMENTS - FREE TEXT/NARRATIVE: HISTORY AND PHYSICAL: History of present illness: Patient is a 39-year-old female presents to the ED with complaint of right hand injury. 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 He states that since then her hand has been swollen and bruising and she is having pain near the ring and pinky fingers. She denies distal numbness or tingling or proximal wrist or elbow pain. Review of systems: As per history of present illness and below otherwise all systems reviewed and negative. Past medical history: As per history of present illness and as reviewed below otherwise noncontributory. Surgical history: As per history of present illness and as reviewed below otherwise noncontributory. Social history: No reported history of drug or alcohol abuse. Family history: As per history of present illness and as reviewed below otherwise noncontributory. Physical exam: General: Patient sitting comfortably in no acute distress and nontoxic appearing HEENT: Atraumatic, normocephalic, pupils reactive, negative for conjunctival pallor or scleral icterus, mucous membranes moist, throat clear, neck supple, nontender, trachea midline. No meningeal signs. Lungs: Clear to auscultation, breath sounds equal bilaterally, chest nontender. Heart: S1S2, regular, negative for clicks, rubs, or overt murmur. Abdomen: Soft, nondistended, nontender. Negative for masses or hepatosplenomegaly. Negative for costovertebral tenderness. No rigidity, rebound , guarding. Pelvis: Stable nontender. Genitourinary: Deferred. Rectal: Deferred. Extremities: There is ecchymosis of the third fourth and fifth MCPs with pain to palpation of the distal fifth metacarpal. negative for cords or calf pain. Neurovascular unremarkable. Neuro: Awake, alert, oriented. Cranial nerves II through XII unremarkable. Cerebellum unremarkable. Motor and sensory unremarkable throughout. Exam nonfocal. Notes: Diagnostics: X-ray right hand Therapeutics: None Prescriptions: None Impression: Right hand injury Plan: 1. Ice, elevate, and motrin or tylenol as needed 2. Follow up with orthopedics, please call the number provided to schedule an appointment 3. Return to ED as needed as discussed Definitive disposition and diagnosis as appropriate pending reevaluation and review of above. 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 ED EXAM, GENERAL - Physical Exam Exam: See Below (See dictation) Course - Vital Signs Last Recorded V/S: Last Vital Signs Temp 98.7 F 05/19/19 10:44 Pulse 68 05/19/19 10:44 Resp 16 05/19/19 10:44 BP 98/66 05/19/19 10:44 Pulse Ox 98 05/19/19 10:44 Departure - Departure Time of Disposition: 11:38 Disposition: Home, Self-Care 01 Condition: Good Clinical Impression: Injury of right hand - Discharge Information Referrals: PCP,None [Primary Care Provider] - Forms: ED Department Discharge Additional Instructions: The following information is given to patients seen in the emergency department who are being discharged to home. This information is to outline your options for follow-up care. We provide all patients seen in our emergency department with a follow-up referral. The need for follow-up, as well as the timing and circumstances, are variable depending upon the specifics of your emergency department visit. If you don't have a primary care physician on staff, we will provide you with a referral. We always advise you to contact your personal physician following an emergency department visit to inform them of the circumstance of the visit and for follow-up with them and/or the need for any referrals to a consulting specialist. The emergency department will also refer you to a specialist when appropriate. This referral assures that you have the opportunity for follow-up care with a specialist. All of these measure are taken in an effort to provide you with optimal care, which includes your follow-up. Under all circumstances we always encourage you to contact your private physician who remains a resource for coordinating your care. When calling for follow-up care, please make the office aware that this follow-up is from your recent emergency room visit. If for any reason you are refused follow-up, please contact the [facility] Emergency Department at and asked to speak to the emergency department charge nurse. [facility] Professional Building [address] [place] [address], [address] [place] [address] 1. Ice, elevate, and motrin or tylenol as needed 2. Follow up with orthopedics, please call the number provided to schedule an appointment 3. Return to ED as needed as discussed Sepsis Event Note - Focused Exam Vital Signs: Vital Signs Temp Pulse Resp BP Pulse Ox 05/19/19 10:44 98.7 F 68 16 98/66 98 Date Exam was Performed: 05/19/19 Time Exam was Performed: 11:37
--- NOTE | 2019-05-19 11:36 | CR ---
Right hand: 3 views of the right hand were obtained. Comparison: No prior hand exam. Joint spaces are preserved. No focal erosions are seen. No fracture, dislocation or other bony abnormality is seen. Impression: 1. Nothing acute is seen on right hand study. Diagnostic code #1 This report was dictated in [place] Standard Time
[2019-05-19 11:59] VITALS: BP 111/68; PULSE 71
== END 2019-05-19 12:00 | disposition home or self-care (01) ==
LOC: MW.ED 10:33
DX: S60.221A Contusion of right hand, initial encounter (principal); Z79.899 Other long term (current) drug therapy; Y93.71 Activity, boxing
CPT/HCPCS: 73130-26-RT; 73130-RT; 99282; 99283-25

== ENCOUNTER 2019-07-15 07:55 | Emergency (ER) | payer BC ==
--- NOTE | 2019-07-15 08:56 | CR ---
Chest: 2 views of the chest were obtained. Comparison: Prior chest x-ray of 01/24/19. Slight tenting of the hemidiaphragms are again noted. Lungs show no acute parenchymal change. Heart size and mediastinum are normal. Bony structures are within normal limits for the patient's age. Impression: 1. Stable chest x-ray. 2. Nothing acute is seen. Diagnostic code #2 This report was dictated in [place] Standard Time
--- NOTE | 2019-07-15 08:58 | EDM.PDOC ---
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 Patient presented for evaluation due to ongoing symptoms and discomfort with coughing. Denies rash, neck stiffness, headache, changes in vision or hearing, or ear pain. M/S/F/SocHx notable for: please see HPI; remainder reviewed with patient and in chart. ROS: Negative constitutional, eye, cardiovascular, pulmonary, GI, , MSK, skin , neurologic, psychiatric, endocrine unless noted in the HPI. Exam Gen: Pleasant, non-toxic appearing, resting comfortably. HEENT: Normocephalic, atraumatic. * Ears - TMs clear bilaterally, bilateral external auditory canals without erythema, inflammation, or swelling, bilateral mastoids nontender without overlying erythema, swelling, or warmth. * Eyes - Bilateral eyes without injection, swelling, or discharge, no proptosis or periorbital erythema, swelling, warmth, or tenderness. * Mouth - Anterior oropharynx with MMM, no lesions appreciated, floor of the mouth is soft and without swelling. Posterior oropharynx with mild erythema but without swelling, exudate, lesions, uvula midline. * Nose - Nares with scant crusting and discharge. * Neck - Neck supple without posterior or anterior cervical chain lymphadenopathy bilaterally. Resp: Clear to auscultation bilaterally, normal work of breathing without accessory muscle usage. Infrequent mildly productive cough observed. Card: Regular rate and rhythm with no murmurs, rubs or gallops. Extremities warm and well perfused. GI: Non-tender to palpation throughout all quadrants, no masses or organomegaly appreciated. : Deferred MSK: No visible deformities, strength and tone without visually appreciable deficit. Neuro: alert and oriented 3, no facial asymmetry, vision and hearing WNL. Heme/Lymph: Deferred Skin: Normal color with no visible lesions (other than noted above). Psych: Mood and affect appropriate. CXR: stable chest x-ray. Nothing acute is seen. MDM Previous chart, nursing note, and vitals reviewed. 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 DDx: viral rhinosinusitis, bacterial rhinosinusitis, pharyngitis (HSV vs viral NOS vs GAS vs bacterial NOS)], EBV, peritonsillar cellulitis, PLATING ENGINEER, RPA, Oscar' s angina, epiglottitis. Evaluation: Overall presentation most consistent with a viral rhinosinutisis, given the duration of symptoms and overall well compensated appearance, antibiotic treatment is not currently indicated, rapid strep not indicated, oral mucosa without lesions consistent with HSV or candidiasis, low suspicion for peritonsillar cellulitis or abscess given the absence of asymmetric swelling or uvular deviation, RPA is unlikely as the patient can comfortably flex and extend their neck and swallow without difficulty. As phonation is intact and breathing is unlabored doubt epiglottitis. The floor of the mouth is without evidence of Oscar's angina. Lemierre's disease was considered but as the patient does not have signs of PLATING ENGINEER or sepsis, further evaluation was not indicated. Vitals and examination without evidence of adrenal insufficiency. Chest x-ray clear. Doubt bacterial pneumonia. ED Course: No clinically significant changes. Disposition: Discharge with return to care as needed. Return to care indications provided. Impression: Rhinosinusitis. 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 - Infectious Disease History Infectious Disease History: Reports: None - Past Surgical History Female Surgical History: Reports: Section Other Female Surgeries/Procedures: CS X3, 1 exploratory lap Social & Family History - Family History Family Medical History: Noncontributory - Tobacco Use Smoking Status *Q: Never Smoker - Caffeine Use Caffeine Use: Reports: Other Caffeine Use Comment: 1cup/day - Recreational Drug Use Recreational Drug Use: No ED ROS GENERAL - Review of Systems Review Of Systems: See Below ED EXAM, GENERAL - Physical Exam Exam: See Below Course - Vital Signs Last Recorded V/S: Last Vital Signs Temp 36.6 C 07/15/19 08:05 Pulse 84 07/15/19 08:05 Resp 18 07/15/19 08:05 BP 97/69 07/15/19 08:05 Pulse Ox 97 07/15/19 08:05 Departure - Departure Time of Disposition: 08:57 Disposition: Home, Self-Care 01 Condition: Good Clinical Impression: Rhinosinusitis - Discharge Information Referrals: PCP,None [Primary Care Provider] - Additional Instructions: You were in seen in the [facility] Emergency Department for evaluation of an upper respiratory tract infection. Please read and follow all of the instructions below. Please follow up with your primary care physician as needed. When calling for follow-up care, please make the office aware that this follow-up is from your recent emergency room visit. If for any reason you are refused follow-up, please contact the [facility] Emergency Department at and asked to speak to the emergency department charge nurse. Your care today was limited to identifying and treating emergent medical problems only. Many people have subtle differences in their test results that require follow up with their outpatient physician(s) to correctly determine if this represents a normal variation or concerning abnormality with respect to your specific health. The care given to you today was limited to identifying and treating emergent medical problems - you need to request a copy of all of your medical records from today's visit and follow up with your outpatient physician(s) to review both today's visit and your overall health. If you have any new symptoms or if you are at all concerned about your health please return immediately to the emergency department. Prescriptions: If you are uninsured or have financial difficulties with filling your prescription(s), you may consider using a free pharmacy discount service such as [employer] ([employer]) or [employer] (my[employer]sense). These services allow you to search for a medication on your phone (or computer) and obtain a coupon that usually has a significant discount from the list jones at a pharmacy. Your physician as well as does not have a financial relationship with either of these services. You may also wish to speak with your physician to determine if lower cost prescriptions are possible. Obtaining primary care: 1. [facility] provides pediatrics (children), family medicine (children, adults, and some obstetrical care), and internal medicine (adults). Further specialty care is also available. Same day appointments are available. They may be contacted at [phone] and are open Monday through Monday 8 AM to [address] [facility] are located at [facility], [address] [place], [place] [address]. 2. [facility] offers family medicine, internal medicine, women health, and further specialty care. [facility] may be contacted at [phone]. [facility] is located at [address] [facility] [address]. 3. If you have health insurance, please also contact your insurer for a list of accepting providers under your policy, you may contact these providers for further health care. Occupational health: Work related injuries may consider following up with [facility], . Occupational health services are located at [address] [place] [phone] and are open Monday through Monday from 7: 30 am to 5:00 pm. Obstetrical and Gynecological Care: [facility], , Monday through Monday 8 AM to [address] [place] [address]. Eyecare: If you have an eye injury you should follow up with your sky diver or with [facility], at [phone] or [phone] , they are located at [address] [place] [address]. Dental Care Rudy Ulloa DDS. [address] [place], [place]. Ph. [phone] Alexandr Ulloa DDS [place]. [address] Ph[address] Giancarlo Mohr DDS. [address] [place] [address]. Ph. [phone] Vinny Kirkpatrick DDS. [address] [facility] [address] [place], [place]. Ph. [phone] Slava Navarro D[facility]. [address] [facility] [address] [place], [place]. Ph. Camejo Rivera Santos DDS. [address] [facility]. Ph. [phone] [facility]. [address] [place], [place]. Ph. [phone] [facility]. [address], [place], [place]. Ph. [phone] [facility] [address] [place] [address]. Ph. [phone] [facility]. [address] [place] [address] [address] [place], [place]. Ph. [phone] [facility]. [address] [place], [place]. Ph. [phone] Cough Home Care Instructions You were seen in the emergency department today for evaluation of your cough. Based upon the evaluation today your cough does not appear to be caused by bacterial pneumonia, rather a virus is the cause of your cough. These types of infections cannot be treated by antibiotics, your body will fight this infection and clear the virus. Most people get better in 7-10 days. It is not uncommon to have a mild nonproductive cough last for up to several weeks following the resolution of your illness. If you continue have a cough beyond 7- 10 days please follow-up with your primary care physician. You may do the following treatments to reduce your symptoms: * Cyty-ijd-pxmijtz cough medications containing dextromethorphan may reduce the frequency and severity of your coughing. Please take as directed on the bottle. Please read all warnings on the bottle. Do not take this medication if you have any allergies to any of the ingredients listed on the bottle. * Ibuprofen may be used to reduce fever, pain, and inflammation. You may take 600 mg (three 200 mg [id number] tablets) every 6-8 hours. Please read the warnings below regarding ibuprofen. Do not take this medication if you are or allergic to ibuprofen, Motrin, Aleve, or naproxen. * Please stay well-hydrated and get adequate rest. * If you are a smoker please stop smoking. * Coji-ies-nbuqdgz lozenges or tea with honey may be used for sore throat. Please return to the emergency department if any of the following occur: * Increasing fever. * Worsening cough or a cough that becomes productive of thick sputum. * A cough that temporarily gets better and then over the several days get significantly worse. This may occur if you developed a bacterial pneumonia following your viral infection. This rarely occurs and there is no prevention at this point in your infection. * Chest pain. * Shortness of breath or difficulty breathing. * If you are otherwise concerned about your health. Ibuprofen (Brand Names: Motrin, Advil) Take 600 mg with a glass of water every 6 to 8 hours as needed for pain or fever. Do not take for more than 10 days. This medication may cause a mildly upset stomach, if so take it with a small snack. Stop taking it if you have persistent abdominal pain, heartburn, or any stomach pain. Do not take this medication if you have known ulcers. Do not take with Naproxen Sodium (brand name: Aleve) or other non-steroidal antiiflammatory medications that you may be prescribed (e.g. Diclofenac, Etodolac, Indomethicin) WARNING: This drug may infrequently cause serious (rarely fatal) bleeding from the stomach or intestines. Also, related drugs rarely have caused blood clots to form, resulting in heart attacks and strokes. This medication might also rarely cause similar problems. Talk to your doctor or pharmacist about the benefits and risks of treatment, as well as other possible medication choices. If you notice any of the following rare but very serious side effects, stop taking ibuprofen and seek immediate medical attention: black stools, persistent stomach/abdominal pain, vomit that looks like coffee grounds, chest pain, weakness on one side of the body, sudden vision changes, slurred speech. SIDE EFFECTS: Upset stomach, nausea, vomiting, heartburn, headache, diarrhea, constipation, drowsiness, and dizziness may occur. If any of these effects persist or worsen, notify your doctor or pharmacist promptly. If your doctor has directed you to use this medication, remember that he or she has judged that the benefit to you is greater than the risk of side effects. Many people using this medication do not have serious side effects. Tell your doctor immediately if any of these serious side effects occur: stomach pain, swelling of the hands or feet, sudden or unexplained weight gain, ringing in the ears ( tinnitus). Tell your doctor immediately if any of these unlikely but serious side effects occur: vision changes, rapid or pounding heartbeat, easy bruising or bleeding, difficult/painful swallowing. Tell your doctor immediately if any of these highly unlikely but very serious side effects occur: change in amount of urine, severe headache, very stiff neck, mental/mood changes, persistent sore throat or fever. This drug may rarely cause serious (possibly fatal) liver disease. If you notice any of the following highly unlikely but very serious side effects, stop taking ibuprofen and consult your doctor or pharmacist immediately: yellowing eyes and skin, dark urine, unusual/extreme tiredness. An allergic reaction to this drug is unlikely, but seek immediate medical attention if it occurs. Symptoms of an allergic reaction include: rash, itching/ swelling (especially of the face/tongue/throat), severe dizziness, trouble breathing. This is not a complete list of possible side effects. DRUG INTERACTIONS: Your healthcare professionals (e.g., doctor or pharmacist) may already be aware of any possible drug interactions and may be monitoring you for it. Do not start, stop or change the dosage of any medicine before checking with them first. This drug should not be used with the following medications because very serious interactions may occur: cidofovir, ketorolac. If you are currently using any of these medications listed above, tell your doctor or pharmacist before starting ibuprofen. Before using this medication, tell your doctor or pharmacist of all prescription and nonprescription/herbal products you may use, especially of: anti-platelet drugs (e.g., cilostazol, clopidogrel), oral bisphosphonates (e.g., alendronate), other medications for arthritis (e.g., aspirin, methotrexate), "blood thinners" (e.g., enoxaparin, heparin, warfarin), corticosteroids (e.g., prednisone), cyclosporine, desmopressin, high blood pressure drugs (including PALLAVI inhibitors such as captopril, angiotensin II receptor antagonists such as losartan, and beta- blockers such as metoprolol), lithium, pemetrexed, "water pills" (diuretics such as furosemide, hydrochlorothiazide, triamterene). Check all prescription and nonprescription medicine labels carefully for other pain/fever drugs ( NSAIDs such as aspirin, celecoxib, naproxen). These drugs are similar to ibuprofen, so taking one of these drugs while also taking ibuprofen may increase your risk of side effects. Consult your doctor or pharmacist for more details. However, if your doctor has prescribed low doses of aspirin to prevent heart attack or stroke (usually at dosages of 81-325 milligrams a day), you should continue to take the aspirin. Daily use of ibuprofen may decrease aspirin 's ability to prevent heart attack/stroke. Talk to your doctor about using a different medication (e.g., acetaminophen) to treat pain/fever. If you must take ibuprofen, talk to your doctor about possibly taking immediate-release aspirin (not enteric-coated) while also taking the ibuprofen dose apart from your aspirin dose. Do not increase your daily dose of aspirin or change the way you take aspirin/other medications without your doctor's approval. This document does not contain all possible interactions. Therefore, before using this product, tell your doctor or pharmacist of all the products you use. Keep a list of all your medications with you, and share the list with your doctor and pharmacist. Acetaminophen (Tylenol) Please take 1,000 mg every 6 hours as needed for pain. Do no use with alcohol or other acetaminophen containing medications. SIDE EFFECTS: This drug usually has no side effects. If you do not have liver problems, the maximum dose of acetaminophen for adults is 4 grams per day (4000 milligrams). Taking more than the maximum daily amount may cause serious ( possibly fatal) liver damage. Get medical help right away if you have any of the following symptoms of liver damage: persistent nausea/vomiting, extreme tiredness, stomach/abdominal pain, yellowing eyes/skin, dark urine. If you have liver problems, consult your doctor or pharmacist for a safe dosage of this medication. A very serious allergic reaction to this drug is rare. However, get medical help right away if you notice any symptoms of a serious allergic reaction, including: rash, itching/swelling (especially of the face/tongue/ throat), severe dizziness, trouble breathing. This is not a complete list of possible side effects. If you notice other effects not listed above, contact your doctor or pharmacist. Sepsis Event Note - Evaluation Sepsis Screening Result: No Definite Risk - Focused Exam Vital Signs: Vital Signs Temp Pulse Resp BP Pulse Ox 07/15/19 08:05 36.6 C 84 18 97/69 97 Date Exam was Performed: 07/15/19 Time Exam was Performed: 08:57
[2019-07-15 09:13] VITALS: BP 106/62; PULSE 73
== END 2019-07-15 09:13 | disposition home or self-care (01) ==
LOC: MW.ED 07:55
DX: J32.9 Chronic sinusitis, unspecified (principal); Z79.899 Other long term (current) drug therapy
CPT/HCPCS: 71046; 71046-26; 99282; 99283

== ENCOUNTER 2019-11-01 11:46 | Emergency (ER) | payer BC ==
[2019-11-01] MEDS ORDERED: Sodium Chloride 0.9% 2.5 ML Syringe FLUSH PRN (12:04)
[2019-11-01] MEDS ORDERED: Sodium Chloride 0.9% 10 ML Syringe FLUSH PRN (12:04)
[2019-11-01] MEDS ORDERED: Sodium Chloride 0.9% 1,000 ML IV ONE (12:08)
--- NOTE | 2019-11-01 12:11 | EDM.PDOC ---
ED HPI GENERAL MEDICAL PROBLEM - General Chief Complaint: General Stated Complaint: addisons disease attack Time Seen by Provider: 11/01/19 11:47 - History of Present Illness INITIAL COMMENTS - FREE TEXT/NARRATIVE: P history of present illness: [Patient presents with several hours of general weakness and shakiness. She has a history of [place]'s disease and says this is how she feels when she starts to have an Niagara crisis. She denies any cough congestion fever no dysuria no symptoms or issues that might have provoked an [place]agara crisis. She denies any nausea or vomiting no diarrhea no black or tarry stools no other causes for her weakness. She takes 30 mg of hydrocortisone a day she has not missed a dose there is been no changes in her dosage lately. She states this happens approximately once or twice a year and usually has sudden onset without provocative cause] Review of systems: As per history of present illness and below otherwise all systems reviewed and negative. Past medical history: As per history of present illness and as reviewed below otherwise noncontributory. Surgical history: As per history of present illness and as reviewed below otherwise noncontributory. Social history: No reported history of drug or alcohol abuse. Family history: As per history of present illness and as reviewed below otherwise noncontributory. Physical exam: HEENT: Atraumatic, normocephalic, pupils reactive, negative for conjunctival pallor or scleral icterus, mucous membranes moist, throat clear, neck supple, nontender, trachea midline. Lungs: Clear to auscultation, breath sounds equal bilaterally, chest nontender. Heart: S1S2, regular, negative for clicks, rubs, or JVD. Abdomen: Soft, nondistended, nontender. Negative for masses or hepatosplenomegaly. Negative for costovertebral tenderness. Pelvis: Stable nontender. Genitourinary: Deferred. Rectal: Deferred. Extremities: Atraumatic, negative for cords or calf pain. Neurovascular unremarkable. Neuro: Awake, alert, oriented. Cranial nerves II through XII unremarkable. Cerebellum unremarkable. Motor and sensory unremarkable throughout. Exam nonfocal. Diagnostics: [] Therapeutics: [] Impression: [] Plan: CBC chemistry urinalysis will be checked bolus of saline will be given the patient will be reassessed. Vital signs are currently stable addisonian crisis at this time. [] Definitive disposition and diagnosis as appropriate pending reevaluation and review of above. 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 Other Endocrine/Metabolic History: [place]'s disease - Infectious Disease History Infectious Disease History: Reports: None - Past Surgical History Female Surgical History: Reports: Section Other Female Surgeries/Procedures: CS X3, 1 exploratory lap Social & Family History - Family History Family Medical History: Noncontributory - Tobacco Use Smoking Status *Q: Never Smoker - Caffeine Use Caffeine Use: Reports: Other Caffeine Use Comment: 1cup/day - Recreational Drug Use Recreational Drug Use: No ED ROS GENERAL - Review of Systems Review Of Systems: See Below ED EXAM, GENERAL - Physical Exam Exam: See Below Course - Vital Signs Text/Narrative:: Patient is reassessed vital signs are stable she appears to have a urinary tract infection this will be treated with Macrobid. 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 She will be given 8 mg of Decadron in the ED return to the ED over the weekend for worsening symptoms. Last Recorded V/S: Last Vital Signs Temp 35.5 C L 11/01/19 11:49 Pulse 74 11/01/19 13:14 Resp 16 11/01/19 13:14 BP 112/46 L 11/01/19 13:14 Pulse Ox 100 11/01/19 13:14 - Orders/Labs/Meds Orders: Active Orders 24 hr Category Date Time Status Sodium Chloride 0.9% [Saline Flush] Med 11/01/19 12:04 Active 10 ml FLUSH ASDIRECTED PRN Sodium Chloride 0.9% [Saline Flush] Med 11/01/19 12:04 Active 2.5 ml FLUSH ASDIRECTED PRN Saline Lock Insert [OM.PC] Stat Oth 11/01/19 12:04 Ordered Medication Orders Sodium Chloride (Saline Flush) 10 ml FLUSH ASDIRECTED PRN PRN Reason: Keep Vein Open Last Admin: 11/01/19 12:18 Dose: 10 ml Documented by: ARLEEN Sodium Chloride (Saline Flush) 2.5 ml FLUSH ASDIRECTED PRN PRN Reason: Keep Vein Open Last Admin: 11/01/19 12:18 Dose: 2.5 ml Documented by: [id number] Labs: Laboratory Tests 11/01/19 11/01/19 11/01/19 Range/Units 12:08 12:08 12:10 WBC 5.93 (4.0-11.0) K/uL RBC 4.55 (4.30-5.90) M/uL Hgb 12.9 (12.0-16.0) g/dL Hct 39.2 (36.0-46.0) % MCV 86.2 (80.0-98.0) fL MCH 28.4 (27.0-32.0) pg MCHC 32.9 (31.0-37.0) g/dL RDW Std Deviation 38.3 (28.0-62.0) fl RDW Coeff of Nanci 12 (11.0-15.0) % Plt Count 238 (150-400) K/uL MPV 10.80 (7.40-12.00) fL Neut % (Auto) 59.0 (48.0-80.0) % Lymph % (Auto) 31.2 (16.0-40.0) % [place] % (Auto) 9.3 (0.0-15.0) % Eos % (Auto) 0.2 (0.0-7.0) % Baso % (Auto) 0.3 (0.0-1.5) % Neut # (Auto) 3.5 (1.4-5.7) K/uL Lymph # (Auto) 1.9 (0.6-2.4) K/uL [place] # (Auto) 0.6 (0.0-0.8) K/uL Eos # (Auto) 0.0 (0.0-0.7) K/uL Baso # (Auto) 0.0 (0.0-0.1) K/uL Nucleated RBC % 0.0 /100WBC Nucleated RBCs # 0 K/uL Sodium 141 (136-145) mmol/L Potassium 3.7 (3.5-5.1) mmol/L Chloride 104 (98-107) mmol/L Carbon Dioxide 25.8 (21.0-32.0) mmol/L BUN 13 (7.0-18.0) mg/dL Creatinine 0.6 (0.6-1.0) mg/dL Est Cr Clr Drug Dosing 142.39 mL/min Estimated GFR (MDRD) > 60.0 ml/min Glucose 106 (74-106) mg/dL Calcium 8.8 (8.5-10.1) mg/dL Total Bilirubin 1.3 H (0.2-1.0) mg/dL AST 29 (15-37) IU/L ALT 33 (14-63) IU/L Alkaline Phosphatase 43 L (46-116) U/L Total Protein 6.0 L (6.4-8.2) g/dL Albumin 3.2 L (3.4-5.0) g/dL Globulin 2.8 (2.6-4.0) g/dL Albumin/Globulin Ratio 1.1 (0.9-1.6) TSH 3rd Generation 0.00 L (0.36-3.74) uIU/mL Urine Color YELLOW Urine Appearance SLT CLOUDY Urine pH 5.5 (5.0-8.0) Ur Specific [place] >= 1.030 (1.001-1.035) Urine Protein NEGATIVE (NEGATIVE) mg/dL Urine Glucose (UA) NEGATIVE (NEGATIVE) mg/dL Urine Ketones NEGATIVE (NEGATIVE) mg/dL Urine Occult Blood NEGATIVE (NEGATIVE) Urine Nitrite NEGATIVE (NEGATIVE) Urine Bilirubin NEGATIVE (NEGATIVE) Urine Urobilinogen 0.2 (<2.0) EU/dL Ur Leukocyte Esterase TRACE H (NEGATIVE) Urine RBC 0-1 (0-2/HPF) Urine WBC 4-8 (0-5/HPF) Ur Epithelial Cells MANY (NONE-FEW) Urine Bacteria FEW (NEGATIVE) Urine Mucus LIGHT (NONE-MOD) Urine Yeast MODERATE Meds: Medications Generic Name Dose Route Start Last Admin Trade Name Freq PRN Reason Stop Dose Admin Sodium Chloride 10 ml 11/01/19 12:04 11/01/19 12:18 Saline Flush FLUSH 10 ml ASDIRECTED PRN Administration Keep Vein Open Sodium Chloride 2.5 ml 11/01/19 12:04 11/01/19 12:18 Saline Flush FLUSH 2.5 ml ASDIRECTED PRN Administration Keep Vein Open Discontinued Medications Generic Name Dose Route Start Last Admin Trade Name Isa PRN Reason Stop Dose Admin Dexamethasone 8 mg 11/01/19 13:25 Dexamethasone IVPUSH 11/01/19 13:26 ONETIME ONE Sodium Chloride 1,000 mls @ 999 mls/hr 11/01/19 12:08 11/01/19 12:17 Normal Saline IV 11/01/19 13:08 999 mls/hr .Bolus ONE Administration Nitrofurantoin Macrocrystals 100 mg 11/01/19 13:26 Macrobid PO 11/01/19 13:27 ONETIME ONE Departure - Departure Time of Disposition: 13:31 Disposition: Home, Self-Care 01 Condition: Good Clinical Impression: [place]agara disease Urinary tract infection Qualifiers: Urinary tract infection type: site unspecified - Discharge Information *PRESCRIPTION DRUG MONITORING PROGRAM REVIEWED*: Not Applicable *COPY OF PRESCRIPTION DRUG MONITORING REPORT IN PATIENT KACY: Not Applicable Prescriptions: Nitrofurantoin Monohyd/M-Cryst [Macrobid 100 mg Capsule] 100 mg PO BID #20 capsule Instructions: Ernie's Disease, Urinary Tract Infection, Adult, [id number] Referrals: PCP,None [Primary Care Provider] - Forms: ED Department Discharge Additional Instructions: The following information is given to patients seen in the emergency department who are being discharged to home. This information is to outline your options for follow-up care. We provide all patients seen in our emergency department with a follow-up referral. The need for follow-up, as well as the timing and circumstances, are variable depending upon the specifics of your emergency department visit. If you don't have a primary care physician on staff, we will provide you with a referral. We always advise you to contact your personal physician following an emergency department visit to inform them of the circumstance of the visit and for follow-up with them and/or the need for any referrals to a consulting specialist. The emergency department will also refer you to a specialist when appropriate. This referral assures that you have the opportunity for follow-up care with a specialist. All of these measure are taken in an effort to provide you with optimal care, which includes your follow-up. Under all circumstances we always encourage you to contact your private physician who remains a resource for coordinating your care. When calling for follow-up care, please make the office aware that this follow-up is from your recent emergency room visit. If for any reason you are refused follow-up, please contact the [facility] Emergency Department at and asked to speak to the emergency department charge nurse. Sepsis Event Note (ED) - Evaluation Sepsis Screening Result: No Definite Risk - Focused Exam Vital Signs: Vital Signs Temp Pulse Resp BP Pulse Ox 11/01/19 13:14 74 16 112/46 L 100 11/01/19 12:44 74 17 129/57 L 100 11/01/19 12:14 80 16 120/56 L 99 11/01/19 11:49 35.5 C L 83 18 108/66 98 - My Orders Last 24 Hours: My Active Orders 11/01/19 12:04 Sodium Chloride 0.9% [Saline Flush] 10 ml FLUSH ASDIRECTED PRN Sodium Chloride 0.9% [Saline Flush] 2.5 ml FLUSH ASDIRECTED PRN Saline Lock Insert [OM.PC] Stat - Assessment/Plan Last 24 Hours: My Active Orders 11/01/19 12:04 Sodium Chloride 0.9% [Saline Flush] 10 ml FLUSH ASDIRECTED PRN Sodium Chloride 0.9% [Saline Flush] 2.5 ml FLUSH ASDIRECTED PRN Saline Lock Insert [OM.PC] Stat
[2019-11-01 12:55] LABS: BLOOD UREA NITROGEN,BUN 13 mg/dL (7.0-18.0); CARBON DIOXIDE,CO2 25.8 mmol/L (21.0-32.0); CHLORIDE,CL 104 mmol/L (98-107); GLUCOSE RANDOM 106 mg/dL (74-106); POTASSIUM,K 3.7 mmol/L (3.5-5.1); SODIUM,NA 141 mmol/L (136-145)
[2019-11-01] MEDS ORDERED: Dexamethasone 10 MG/ML SDV IVPUSH ONE (13:25)
[2019-11-01 13:26] VITALS: BP 112/46; PULSE 74
[2019-11-01] MEDS ORDERED: Nitrofurantoin Monohydrate/Macrocrystalline 100 MG Cap PO ONE (13:26)
== END 2019-11-01 13:53 | disposition home or self-care (01) ==
LOC: MW.ED 11:46
DX: N39.0 Urinary tract infection, site not specified (principal); E27.1 Primary adrenocortical insufficiency
CPT/HCPCS: 36415; 80053; 81001; 84443; 85025; 96361; 96374; 99284; A9270; J1100; J7030; 99283

== ENCOUNTER 2020-10-19 09:34 | Emergency (ER) | payer BC, MEDICAID, OTHER ==
[2020-10-19 11:08] LABS: BLOOD UREA NITROGEN,BUN 15 mg/dL (7.0-18.0); CARBON DIOXIDE,CO2 31.1 mmol/L (21.0-32.0); CHLORIDE,CL 101 mmol/L (98-107); GLUCOSE RANDOM 87 mg/dL (74-106); POTASSIUM,K 3.9 mmol/L (3.5-5.1); SODIUM,NA 140 mmol/L (136-145)
--- NOTE | 2020-10-19 11:21 | EDM.PDOC ---
ED HPI GENERAL MEDICAL PROBLEM - General Chief Complaint: General Stated Complaint: [place] AND GRAVES DISEASE Time Seen by Provider: 10/19/20 10:03 Source of Information: Reports: Patient History Limitations: Reports: No Limitations - History of Present Illness INITIAL COMMENTS - FREE TEXT/NARRATIVE: HISTORY AND PHYSICAL: History of present illness: Patient is a 40-year-old female, with a history of [place]'s and Graves' disease, who presents to the emergency department with 1 day history of tiredness, muscle spasms and cramping and was concerned of her electrolytes due to her Addisons disease. Patient states that she has had on and off episodes of crises but they have improved in duration and frequency. Patient states that she sees a primary care provider and auto body man to help manage her Ernie's and takes all her medications as prescribed. Patient states that she has been on the same dose of steroids and has not had any change in this in multiple years. Patient states that she has had the symptoms prior and has not had any electrolyte issues and has improved without change in her medications prior. Patient denies any other symptoms or concerns. Patient denies fever, chills, chest pain, shortness of breath, or cough. Denies headache, neck stiff ness, change in vision, syncope, or near syncope. Denies nausea, abdominal pain, vomiting, diarrhea, constipation, or dysuria. Has not noted any blood in urine or stool. Patient has been eating and drinking appropriately. Review of systems: As per history of present illness and below otherwise all systems reviewed and negative. Past medical history: As per history of present illness and as reviewed below otherwise noncontributory. Surgical history: As per history of present illness and as reviewed below otherwise noncontributory. Social history: See social history for further information Family history: As per history of present illness and as reviewed below otherwise noncontributory. Physical exam: General: Patient is alert, oriented, and in no acute distress. Patient sitting comfortably on exam table. Patient's vitals stable and reviewed by me. HEENT: Atraumatic, normocephalic, pupils equal and reactive bilaterally, negative for conjunctival pallor or scleral icterus, mucous membranes moist, TMs normal bilaterally, throat clear, neck supple, nontender, trachea midline. No drooling or trismus noted. No meningeal signs. No hot potato voice noted. Lungs: Clear to auscultation, breath sounds equal bilaterally, chest nontender. Heart: S1S2, regular rate and rhythm without overt murmur Abdomen: Soft, nondistended, nontender. Negative for masses or hepatosplenomegaly. Negative for costovertebral tenderness. Pelvis: Stable nontender. Genitourinary: Deferred. Rectal: Deferred. Skin: Intact, warm, dry. No lesions or rashes noted. Dark pigment noted bilaterally over the dorsal aspect of hands. Extremities: Atraumatic, negative for cords or calf pain. Neurovascular unre markable. Neuro: Awake, alert, oriented. Cranial nerves II through XII unremarkable. Cerebellum unremarkable. Motor and sensory unremarkable throughout. Exam nonfocal. Notes: Discussed signs and symptoms that would prompt return to the emergency department. Discussed the importance of following up with primary care and auto body man. Voices understanding and is agreeable to plan of care. Denies any further questions or concerns at this time. Diagnostics: CBC, CMP, Magnesium, CPK Therapeutics: None Prescription: None Impression: Fatigue Plan: 1. Follow-up with your auto body man and primary care provider as discussed. Return to the ED as needed and as discussed. Definitive disposition and diagnosis as appropriate pending reevaluation and review of above. 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: Neurological History: Reports: None Psychiatric History: Reports: None Endocrine/Metabolic History: Reports: [place]'s Disease Other Endocrine/Metabolic History: [place]'s disease Grave's Disease - Infectious Disease History Infectious Disease History: Reports: None - Past Surgical History Female Surgical History: Reports: Section, Hysterectomy Other Female Surgeries/Procedures: CS X3, 1 exploratory lap Social & Family History - Family History Family Medical History: No Pertinent Family History - Tobacco Use Tobacco Use Status *Q: Never Tobacco User Second Hand Smoke Exposure: No - Caffeine Use Caffeine Use: Reports: Coffee, Energy Drinks, Soda Caffeine Use Comment: 1cup/day - Recreational Drug Use Recreational Drug Use: No ED ROS GENERAL - Review of Systems Review Of Systems: Comprehensive ROS is negative, except as noted in HPI. ED EXAM, GENERAL - Physical Exam Exam: See Below (see dictation) Course - Vital Signs Last Recorded V/S: Last Vital Signs Temp 97.7 F 10/19/20 09:57 Pulse 63 10/19/20 11:29 Resp 16 10/19/20 11:29 BP 111/74 10/19/20 11:29 Pulse Ox 100 10/19/20 11:29 - Orders/Labs/Meds Orders: Active Orders 24 hr Category Date Time Status UA RFX HENRY AND CULT IF INDIC [URIN] Stat Lab 10/19/20 11:12 Ordered Labs: Laboratory Tests 10/19/20 10/19/20 10/19/20 Range/Units 10:33 10:33 10:33 WBC 11.41 H (4.0-11.0) K/uL RBC 4.42 (4.30-5.90) M/uL Hgb 13.9 (12.0-16.0) g/dL Hct 41.9 (36.0-46.0) % MCV 94.8 (80.0-98.0) fL MCH 31.4 (27.0-32.0) pg MCHC 33.2 (31.0-37.0) g/dL RDW Std Deviation 47.3 (28.0-62.0) fl RDW Coeff of Nanci 14 (11.0-15.0) % Plt Count 236 (150-400) K/uL MPV 11.80 (7.40-12.00) fL Neut % (Auto) 57.6 (48.0-80.0) % Lymph % (Auto) 36.3 (16.0-40.0) % [place] % (Auto) 5.6 (0.0-15.0) % Eos % (Auto) 0.0 (0.0-7.0) % Baso % (Auto) 0.5 (0.0-1.5) % Neut # (Auto) 6.6 H (1.4-5.7) K/uL Lymph # (Auto) 4.1 H (0.6-2.4) K/uL [place] # (Auto) 0.6 (0.0-0.8) K/uL Eos # (Auto) 0.0 (0.0-0.7) K/uL Baso # (Auto) 0.1 (0.0-0.1) K/uL Nucleated RBC % 0.0 /100WBC Nucleated RBCs # 0 K/uL Sodium 140 (136-145) mmol/L Potassium 3.9 (3.5-5.1) mmol/L Chloride 101 (98-107) mmol/L Carbon Dioxide 31.1 (21.0-32.0) mmol/L BUN 15 (7.0-18.0) mg/dL Creatinine 0.7 (0.6-1.0) mg/dL Est Cr Clr Drug Dosing 120.82 mL/min Estimated GFR (MDRD) > 60.0 ml/min Glucose 87 (74-106) mg/dL Calcium 8.4 L (8.5-10.1) mg/dL Magnesium 2.1 (1.8-2.4) mg/dL Total Bilirubin 0.8 (0.2-1.0) mg/dL AST 20 (15-37) IU/L ALT 30 (14-63) IU/L Alkaline Phosphatase 60 (46-116) U/L Creatine Kinase 47 (26-308) U/L Total Protein 6.8 (6.4-8.2) g/dL Albumin 3.5 (3.4-5.0) g/dL Globulin 3.3 (2.6-4.0) g/dL Albumin/Globulin Ratio 1.1 (0.9-1.6) Departure - Departure Time of Disposition: 11:20 Disposition: Home, Self-Care 01 Clinical Impression: Fatigue Qualifiers: Fatigue type: unspecified Qualified Code(s): R53.83 - Other fatigue - Discharge Information Instructions: Fatigue, Weakness, [id number] Referrals: PCP,None [Primary Care Provider] - Forms: ED Department Discharge Additional Instructions: The following information is given to patients seen in the emergency department who are being discharged to home. This information is to outline your options for follow-up care. We provide all patients seen in our emergency department with a follow-up referral. The need for follow-up, as well as the timing and circumstances, are variable depending upon the specifics of your emergency department visit. If you don't have a primary care physician on staff, we will provide you with a referral. We always advise you to contact your personal physician following an emergency department visit to inform them of the circumstance of the visit and for follow-up with them and/or the need for any referrals to a consulting specialist. The emergency department will also refer you to a specialist when appropriate. This referral assures that you have the opportunity for follow-up care with a specialist. All of these measure are taken in an effort to provide you with optimal care, which includes your follow-up. Under all circumstances we always encourage you to contact your private physician who remains a resource for coordinating your care. When calling for follow-up care, please make the office aware that this follow-up is from your recent emergency room visit. If for any reason you are refused follow-up, please contact the [facility] Emergency Department at and asked to speak to the emergency department charge nurse. [facility] [address] [place] [address] [place] [address] 1. Follow-up with your auto body man and primary care provider as discussed. Return to the ED as needed and as discussed. Sepsis Event Note (ED) - Evaluation Sepsis Screening Result: No Definite Risk - Focused Exam Vital Signs: Vital Signs Temp Pulse Resp BP Pulse Ox 10/19/20 11:29 63 16 111/74 100 10/19/20 09:57 97.7 F 64 18 111/72 99 - My Orders Last 24 Hours: My Active Orders 10/19/20 11:12 UA RFX HENRY AND CULT IF INDIC [URIN] Stat - Assessment/Plan Last 24 Hours: My Active Orders 10/19/20 11:12 UA RFX HENRY AND CULT IF INDIC [URIN] Stat
[2020-10-19 11:30] VITALS: BP 111/74; PULSE 63
== END 2020-10-19 11:29 | disposition home or self-care (01) ==
LOC: MW.ED 09:34
DX: R53.83 Other fatigue (principal); Z79.899 Other long term (current) drug therapy
CPT/HCPCS: 36415; 80053; 82550; 83735; 85025; 99282; 99283

== ENCOUNTER 2020-12-29 02:29 | Emergency (ER) | payer MEDICAID ==
[2020-12-29] MEDS ORDERED: Sodium Chloride 0.9% 2.5 ML Syringe FLUSH PRN (02:49)
[2020-12-29] MEDS ORDERED: Sodium Chloride 0.9% 10 ML Syringe FLUSH PRN (02:49)
--- NOTE | 2020-12-29 02:59 | EDM.PDOC ---
ED HPI GENERAL MEDICAL PROBLEM - General Chief Complaint: ENT Problem Stated Complaint: COLD SYMPTOMS- CONGESTION, NASAL ISSUES Time Seen by Provider: 12/29/20 02:44 - History of Present Illness INITIAL COMMENTS - FREE TEXT/NARRATIVE: History of present illness: [] Patient admits to cough and fatigue. She has Ernie's disease. She is worried because sometimes she gets the crisis when she gets early illness. She is not vaccinated for COVID-19. Symptoms started 4 to 5 days ago. This patient was seen and evaluated during the 2019 SARS-CoV-2 novel coronavirus pandemic period. Community viral transmission is ongoing at time of this encounter and the emergency department is operating under pandemic response procedures. Review of systems: As per history of present illness and below otherwise all systems reviewed and negative. Past medical history: As per history of present illness and as reviewed below otherwise noncontributory. Surgical history: As per history of present illness and as reviewed below otherwise noncontributory. Social history: No reported history of drug or alcohol abuse. Family history: As per history of present illness and as reviewed below otherwise noncontributory. Physical exam: Constitutional - well developed, well-nourished and in no acute distress HEENT - normocephalic, no evidence of trauma - external nose and mouth normal - no mass in neck and no JVD - mucosae moist EYES - full EOM, PERRL, no icterus - no evidence of inflammation, injection, or drainage Respiratory - no respiratory distress, equal bilateral expansion, lungs clear to auscultation and no abnormal lung sounds Cardiovascular - Regular Rhythm with S1 and S2 appreciated and no murmur, gallop or rub. GI - abdomen soft without distension or organomegaly - normal bowel sounds - no guard or rebound Musculoskeletal no gross deformity of long bones or joints - no tenderness, swelling or edema Neurologic - Alert and oriented times four - CN II-XII grossly intact - motor sensory and coordination symmetrically normal Psychiatric - appropriate mood and affect with normal thought content Hematologic - No petechiae or purpura - mucosa appropriate color and sclera not pale - normal nail bed color and refill Integument - no rash or evidence of trauma - normal turgor Diagnostics: [] Therapeutics: [] Impression: [] Plan: [] Definitive disposition and diagnosis as appropriate pending reevaluation and review of above. Bilateral Headache Pain Score (Numeric/FACES): 5 - Related Data Allergies Allergy/AdvReac Type Severity Reaction Status Date / Time No Known Allergies Allergy Verified 11/01/19 11:48 Home Meds: Home Meds Fludrocortisone [Florinef] 0.1 mg PO DAILY 02/22/15 [History] Hydrocortisone 10 mg PO BEDTIME 07/15/19 [History] Levothyroxine Sodium [Levothyroxine] 75 mcg PO 10/19/20 [History] Past Medical History - Past Health History Medical/Surgical History: Denies Medical/Surgical History HEENT History: Reports: None Cardiovascular History: Reports: None Respiratory History: Reports: None Gastrointestinal History: Reports: None Genitourinary History: Reports: None 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: Musculoskeletal History: Reports: None Neurological History: Reports: None Psychiatric History: Reports: None 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 Disease Hematologic History: Reports: None Dermatologic History: Reports: None - Infectious Disease History Infectious Disease History: Reports: None - Past Surgical History Cardiovascular Surgical History: Reports: None Female Surgical History: Reports: Section, Hysterectomy Other Female Surgeries/Procedures: CS X3, 1 exploratory lap Social & Family History - Family History Family Medical History: No Pertinent Family History - Tobacco Use Tobacco Use Status *Q: Never Tobacco User - Caffeine Use Caffeine Use: Reports: None Caffeine Use Comment: 1cup/day - Recreational Drug Use Recreational Drug Use: No ED ROS GENERAL - Review of Systems Review Of Systems: Comprehensive ROS is negative, except as noted in HPI. ED EXAM, GENERAL - Physical Exam Exam: See Below Free Text/Narrative:: My physical exam as in the HPI Course - Vital Signs Last Recorded V/S: Last Vital Signs Temp 36.4 C 12/29/20 02:38 Pulse 71 12/29/20 02:38 Resp 18 12/29/20 02:38 BP 119/76 12/29/20 02:38 Pulse Ox 96 12/29/20 02:38 - Orders/Labs/Meds Orders: Active Orders 24 hr Category Date Time Status Sodium Chloride 0.9% [Normal Saline] 1,000 ml Med 12/29/20 03:00 Stop Req IV ASDIRECTED Medication Orders Sodium Chloride (Normal Saline) 1,000 mls @ 150 mls/hr IV ASDIRECTED RUDDY Labs: Laboratory Tests 12/29/20 12/29/20 12/29/20 Range/Units 02:50 03:00 03:00 WBC 4.69 (4.0-11.0) K/uL RBC 4.16 L (4.30-5.90) M/uL Hgb 13.1 (12.0-16.0) g/dL Hct 38.0 (36.0-46.0) % MCV 91.3 (80.0-98.0) fL MCH 31.5 (27.0-32.0) pg MCHC 34.5 (31.0-37.0) g/dL RDW Std Deviation 44.4 (28.0-62.0) fl RDW Coeff of Nanci 13 (11.0-15.0) % Plt Count 202 (150-400) K/uL MPV 10.60 (7.40-12.00) fL Neut % (Auto) 39.6 L (48.0-80.0) % Lymph % (Auto) 49.3 H (16.0-40.0) % [place] % (Auto) 10.7 (0.0-15.0) % Eos % (Auto) 0.0 (0.0-7.0) % Baso % (Auto) 0.4 (0.0-1.5) % Neut # (Auto) 1.9 (1.4-5.7) K/uL Lymph # (Auto) 2.3 (0.6-2.4) K/uL [place] # (Auto) 0.5 (0.0-0.8) K/uL Eos # (Auto) 0.0 (0.0-0.7) K/uL Baso # (Auto) 0.0 (0.0-0.1) K/uL Nucleated RBC % 0.0 /100WBC Nucleated RBCs # 0 K/uL Sodium 140 (136-145) mmol/L Potassium 3.2 L (3.5-5.1) mmol/L Chloride 102 (98-107) mmol/L Carbon Dioxide 28.4 (21.0-32.0) mmol/L BUN 14 (7.0-18.0) mg/dL Creatinine 0.8 (0.6-1.0) mg/dL Est Cr Clr Drug Dosing 105.72 mL/min Estimated GFR (MDRD) > 60.0 ml/min Glucose 81 (74-106) mg/dL Calcium 7.8 L (8.5-10.1) mg/dL Total Bilirubin 0.4 (0.2-1.0) mg/dL AST 24 (15-37) IU/L ALT 26 (14-63) IU/L Alkaline Phosphatase 51 (46-116) U/L Total Protein 6.5 (6.4-8.2) g/dL Albumin 3.5 (3.4-5.0) g/dL Globulin 3.0 (2.6-4.0) g/dL Albumin/Globulin Ratio 1.2 (0.9-1.6) SARS-CoV-2 RNA (SHAHEEN) POSITIVE H (NEGATIVE) Meds: Medications Generic Name Dose Route Start Last Admin Trade Name Freq PRN Reason Stop Dose Admin Sodium Chloride 1,000 mls @ 150 mls/hr 12/29/20 03:00 Normal Saline IV ASDIRECTED RUDDY Discontinued Medications Generic Name Dose Route Start Last Admin Trade Name Freq PRN Reason Stop Dose Admin Calcium Carbonate/Glycine 1,000 mg 12/29/20 03:31 12/29/20 03:40 Calcium Carbonate 500 Mg Tab.Chew PO 12/29/20 03:32 1,000 mg ONETIME ONE Administration Calcium Carbonate/Glycine Confirm 12/29/20 03:41 Calcium Carbonate 500 Mg Tab.Chew Administered 12/29/20 03:42 Dose 500 mg .ROUTE .STK-MED ONE Potassium Chloride 20 meq 12/29/20 03:31 12/29/20 03:40 Potassium Chloride 20 Meq Tab.Er PO 12/29/20 03:32 20 meq ONETIME ONE Administration Sodium Chloride 10 ml 12/29/20 02:49 Sodium Chloride 0.9% 10 Ml Syringe FLUSH ASDIRECTED PRN Keep Vein Open Sodium Chloride 2.5 ml 12/29/20 02:49 Sodium Chloride 0.9% 2.5 Ml Syringe FLUSH ASDIRECTED PRN Keep Vein Open Departure - Departure Time of Disposition: 04:11 Disposition: Home, Self-Care 01 Condition: Good Clinical Impression: COVID-19, Hypokalemia, Hypocalcemia - Discharge Information Instructions: COVID-19 Vaccine Information, COVID-19: Quarantine vs. Isolation - [facility] (04/23/2020), COVID-19: What to Do if You Are Sick - [facility] (05/07/2020), Hypocalcemia, Adult, Hypokalemia Referrals: PCP,None [Primary Care Provider] - Forms: ED Department Discharge Additional Instructions: Monoclonal antibodies are recommended for people with significant systemic dise [facility] Care [address] [place] [address] [facility] [address] [place] [id number] The following information is given to patients seen in the emergency department who are being discharged to home. This information is to outline your options for follow-up care. We provide all patients seen in our emergency department with a follow-up referral. The need for follow-up, as well as the timing and circumstances, are variable de pending upon the specifics of your emergency department visit. If you don't have a primary care physician on staff, we will provide you with a referral. We always advise you to contact your personal physician following an emergency department visit to inform them of the circumstance of the visit and for follow-up with them and/or the need for any referrals to a consulting specialist. The emergency department will also refer you to a specialist when appropriate. This referral assures that you have the opportunity for follow-up care with a specialist. All of these measure are taken in an effort to provide you with optimal care, which includes your follow-up. Under all circumstances we always encourage you to contact your private physician who remains a resource for coordinating your care. When calling for follow-up care, please make the office aware that this follow-up is from your recent emergency room visit. If for any reason you are refused follow-up, please contact the [facility] Emergency Department at and asked to speak to the emergency department charge nurse. Sepsis Event Note (ED) - Evaluation Sepsis Screening Result: No Definite Risk - Focused Exam Vital Signs: Vital Signs Temp Pulse Resp BP Pulse Ox 12/29/20 02:38 36.4 C 71 18 119/76 96 - My Orders Last 24 Hours: My Active Orders 12/29/20 03:00 Sodium Chloride 0.9% [Normal Saline] 1,000 ml IV ASDIRECTED - Assessment/Plan Last 24 Hours: My Active Orders 12/29/20 03:00 Sodium Chloride 0.9% [Normal Saline] 1,000 ml IV ASDIRECTED
[2020-12-29] MEDS ORDERED: Sodium Chloride 0.9% 1,000 ML IV SCH (03:00)
[2020-12-29 03:26] LABS: BLOOD UREA NITROGEN,BUN 14 mg/dL (7.0-18.0); CARBON DIOXIDE,CO2 28.4 mmol/L (21.0-32.0); CHLORIDE,CL 102 mmol/L (98-107); GLUCOSE RANDOM 81 mg/dL (74-106); POTASSIUM,K 3.2 mmol/L (3.5-5.1); SODIUM,NA 140 mmol/L (136-145)
[2020-12-29] MEDS ORDERED: Calcium Carbonate 500 MG Tab.Chew PO ONE (03:31)
[2020-12-29] MEDS ORDERED: Potassium Chloride 20 MEQ Tab.ER PO ONE (03:31)
[2020-12-29] MEDS ORDERED: Calcium Carbonate 500 MG Tab.Chew ONE (03:41)
[2020-12-29 04:29] VITALS: BP 117/69; PULSE 65
== END 2020-12-29 04:25 | disposition home or self-care (01) ==
LOC: MW.ED 02:29
DX: U07.1 COVID-19 (principal); E87.6 Hypokalemia; E83.51 Hypocalcemia; E27.1 Primary adrenocortical insufficiency; E05.00 Thyrotoxicosis with diffuse goiter without thyrotoxic crisis or storm; Z79.899 Other long term (current) drug therapy
CPT/HCPCS: 36415; 80053; 85025; 87635; 99283; A9270; U0002

== ENCOUNTER 2021-02-08 19:04 | Emergency (ER) | payer MEDICAID ==
[2021-02-08] MEDS ORDERED: Sodium Chloride 0.9% 1,000 ML IV ONE (19:51)
--- NOTE | 2021-02-08 19:57 | EDM.PDOC ---
ED HPI GENERAL MEDICAL PROBLEM - General Chief Complaint: General Stated Complaint: POSSIBLE PILAR'S CRISIS Time Seen by Provider: 02/08/21 19:45 Source of Information: Reports: Patient History Limitations: Reports: No Limitations - History of Present Illness INITIAL COMMENTS - FREE TEXT/NARRATIVE: Patient is a 40-year-old female w/ past medical history of Pilar's and Graves' disease. States she came in today because she feels tired and weak and believes she may be having an adrenal gland crisis. She has been feeling tired and weak. She does not check her sugar but thinks her sugar may be dropping as well. States he took her medications earlier this afternoon around 4 PM. She denies any fever chills cough urinary symptoms other signs of infection. Headache Pain Score (Numeric/FACES): 6 - Related Data Allergies Allergy/AdvReac Type Severity Reaction Status Date / Time No Known Allergies Allergy Verified 11/01/19 11:48 Home Meds: Home Meds Fludrocortisone [Florinef] 0.1 mg PO DAILY 02/22/15 [History] Hydrocortisone 10 mg PO BEDTIME 07/15/19 [History] Levothyroxine Sodium [Levothyroxine] 100 mcg PO DAILY 10/19/20 [History] Past Medical History - Past Health History Medical/Surgical History: Denies Medical/Surgical History HEENT History: Reports: None Cardiovascular History: Reports: None Respiratory History: Reports: None Gastrointestinal History: Reports: None Genitourinary History: Reports: None 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: Musculoskeletal History: Reports: None Neurological History: Reports: None Psychiatric History: Reports: None 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 History: Pilar's disease Grave's Disease Hematologic History: Reports: None Dermatologic History: Reports: None - Infectious Disease History Infectious Disease History: Reports: None - Past Surgical History Cardiovascular Surgical History: Reports: None Female Surgical History: Reports: Section, Hysterectomy Other Female Surgeries/Procedures: CS X3, 1 exploratory lap Endocrine Surgical History: Reports: Thyroidectomy Social & Family History - Family History Family Medical History: No Pertinent Family History - Tobacco Use Tobacco Use Status *Q: Never Tobacco User Second Hand Smoke Exposure: No - Caffeine Use Caffeine Use: Reports: None Caffeine Use Comment: 1cup/day - Recreational Drug Use Recreational Drug Use: No ED ROS GENERAL - Review of Systems Review Of Systems: See Below Constitutional: Reports: Weakness HEENT: Reports: No Symptoms Respiratory: Reports: No Symptoms Cardiovascular: Reports: No Symptoms Endocrine: Reports: No Symptoms GI/Abdominal: Reports: No Symptoms : Reports: No Symptoms Musculoskeletal: Reports: No Symptoms Skin: Reports: No Symptoms Neurological: Reports: No Symptoms Psychiatric: Reports: No Symptoms Hematologic/Lymphatic: Reports: No Symptoms Immunologic: Reports: No Symptoms ED EXAM, GENERAL - Physical Exam Exam: See Below Exam Limited By: No Limitations General Appearance: Alert, WD/WN, No Apparent Distress Eye Exam: Bilateral Eye: EOMI, PERRL Head: Atraumatic, Normocephalic Neck: Normal Inspection Respiratory/Chest: No Respiratory Distress, Lungs Clear, Normal Breath Sounds Cardiovascular: Normal Peripheral Pulses, Regular Rate, Rhythm, No Edema GI/Abdominal: Normal Bowel Sounds, Soft, Non-Tender Back Exam: Normal Inspection, Full Range of Motion Extremities: Normal Inspection, Normal Range of Motion, Non-Tender Neurological: Alert, Oriented, Normal Cognition, Normal Gait Skin Exam: Warm Course - Vital Signs Last Recorded V/S: Last Vital Signs Temp 96.9 F 02/08/21 19:17 Pulse 60 02/08/21 19:17 Resp 18 02/08/21 19:17 BP 99/76 02/08/21 19:17 Pulse Ox 98 02/08/21 19:17 - Orders/Labs/Meds Labs: Laboratory Tests 02/08/21 02/08/21 02/08/21 Range/Units 21:20 21:20 21:20 WBC 8.93 (4.0-11.0) K/uL RBC 4.32 (4.30-5.90) M/uL Hgb 13.7 (12.0-16.0) g/dL Hct 39.9 (36.0-46.0) % MCV 92.4 (80.0-98.0) fL MCH 31.7 (27.0-32.0) pg MCHC 34.3 (31.0-37.0) g/dL RDW Std Deviation 45.1 (28.0-62.0) fl RDW Coeff of Nanci 13 (11.0-15.0) % Plt Count 255 (150-400) K/uL MPV 11.60 (7.40-12.00) fL Neut % (Auto) 55.9 (48.0-80.0) % Lymph % (Auto) 38.5 (16.0-40.0) % [place] % (Auto) 5.2 (0.0-15.0) % Eos % (Auto) 0.0 (0.0-7.0) % Baso % (Auto) 0.4 (0.0-1.5) % Neut # (Auto) 5.0 (1.4-5.7) K/uL Lymph # (Auto) 3.4 H (0.6-2.4) K/uL [place] # (Auto) 0.5 (0.0-0.8) K/uL Eos # (Auto) 0.0 (0.0-0.7) K/uL Baso # (Auto) 0.0 (0.0-0.1) K/uL Nucleated RBC % 0.0 /100WBC Nucleated RBCs # 0 K/uL Sodium 141 (136-145) mmol/L Potassium 4.2 (3.5-5.1) mmol/L Chloride 103 (98-107) mmol/L Carbon Dioxide 30.3 (21.0-32.0) mmol/L BUN 17 (7.0-18.0) mg/dL Creatinine 0.6 (0.6-1.0) mg/dL Est Cr Clr Drug Dosing 140.95 mL/min Estimated GFR (MDRD) > 60.0 ml/min Glucose 93 (74-106) mg/dL Calcium 8.1 L (8.5-10.1) mg/dL Phosphorus 2.9 (2.6-4.7) mg/dL Magnesium 2.3 (1.8-2.4) mg/dL Total Bilirubin 0.5 (0.2-1.0) mg/dL AST 19 (15-37) IU/L ALT 21 (14-63) IU/L Alkaline Phosphatase 57 (46-116) U/L Total Protein 7.0 (6.4-8.2) g/dL Albumin 3.8 (3.4-5.0) g/dL Globulin 3.2 (2.6-4.0) g/dL Albumin/Globulin Ratio 1.2 (0.9-1.6) Lipase 99 (73-393) U/L HCG, Qual NEGATIVE (NEG) Meds: Medications Discontinued Medications Generic Name Dose Route Start Last Admin Trade Name Isa PRN Reason Stop Dose Admin Sodium Chloride 1,000 mls @ 999 mls/hr 02/08/21 19:51 02/08/21 21:21 Normal Saline IV 02/08/21 20:51 999 mls/hr .BOLUS ONE Administration - Re-Assessments/Exams Free Text/Narrative Re-Assessment/Exam: 02/08/21 22:17 Reviewed patient labs patient sodium potassium glucose normal range has not been hypotensive here continues look well patient may have a viral syndrome recommend patient go home follow-up with primary care physician and was given strict return precautions as well. Departure - Departure Time of Disposition: 22:17 Disposition: Home, Self-Care 01 Condition: Good Clinical Impression: General medical exam - Discharge Information *PRESCRIPTION DRUG MONITORING PROGRAM REVIEWED*: Not Applicable *COPY OF PRESCRIPTION DRUG MONITORING REPORT IN PATIENT KACY: Not Applicable Instructions: [place]'s Disease Referrals: PCP,Not In Area [Primary Care Provider] - Forms: ED Department Discharge Additional Instructions: The following information is given to patients seen in the emergency department who are being discharged to home. This information is to outline your options for follow-up care. We provide all patients seen in our emergency department with a follow-up referral. The need for follow-up, as well as the timing and circumstances, are variable depending upon the specifics of your emergency department visit. If you don't have a primary care physician on staff, we will provide you with a referral. We always advise you to contact your personal physician following an emergency department visit to inform them of the circumstance of the visit and for follow-up with them and/or the need for any referrals to a consulting specialist. The emergency department will also refer you to a specialist when appropriate. This referral assures that you have the opportunity for follow-up care with a specialist. All of these measure are taken in an effort to provide you with optimal care, which includes your follow-up. Under all circumstances we always encourage you to contact your private physician who remains a resource for coordinating your care. When calling for follow-up care, please make the office aware that this follow-up is from your recent emergency room visit. If for any reason you are refused follow-up, please contact the [facility] Emergency Department at and asked to speak to the emergency department charge nurse. Please follow up with your primary care physician. If you do not have a primary care physician, see below: [facility] [address] [place] [address] My [facility] [address] [place] [address] You were seen today for feeling tired and weak. You had some concerns about adrenal crisis due to your Pilar's disease. We check your labs your sodium potassium and glucose were within normal range as well as your blood pressure. You may become down with a viral syndrome. We recommend you keep an eye on it and if your symptoms become worse please return to the ED immediately otherwise follow-up with your primary medical doctor as outpatient. Sepsis Event Note (ED) - Focused Exam Vital Signs: Vital Signs Temp Pulse Resp BP Pulse Ox 02/08/21 19:17 96.9 F 60 18 99/76 98 - Assessment/Plan Plan: Patient is a 40-year-old female who presents today for a possible adrenal gland crisis. She took her medication hydrocortisone earlier but says she still feels tired and fatigued and says she feels she now has a crisis. We will obtain labs and reassess patient. Patient exam has normal vital signs.
[2021-02-08 22:00] LABS: BLOOD UREA NITROGEN,BUN 17 mg/dL (7.0-18.0); CARBON DIOXIDE,CO2 30.3 mmol/L (21.0-32.0); CHLORIDE,CL 103 mmol/L (98-107); GLUCOSE RANDOM 93 mg/dL (74-106); LIPASE 99 U/L (73-393); POTASSIUM,K 4.2 mmol/L (3.5-5.1); SODIUM,NA 141 mmol/L (136-145)
[2021-02-08 22:46] VITALS: BP 125/76; PULSE 58
== END 2021-02-08 22:59 | disposition home or self-care (01) ==
LOC: MW.ED 19:04
DX: R51.9 Headache, unspecified (principal); E05.00 Thyrotoxicosis with diffuse goiter without thyrotoxic crisis or storm; Z79.899 Other long term (current) drug therapy
CPT/HCPCS: 36415; 80053; 83690; 83735; 84100; 84703; 85025; 99283; J7030

== ENCOUNTER 2021-06-09 11:08 | Emergency (ER) | payer MEDICAID ==
[2021-06-09] MEDS ORDERED: Sodium Chloride 0.9% 1,000 ML IV ONE (11:55)
[2021-06-09] MEDS ORDERED: Sodium Chloride 0.9% 2.5 ML Syringe FLUSH PRN (11:55)
[2021-06-09] MEDS ORDERED: Sodium Chloride 0.9% 10 ML Syringe FLUSH PRN (11:55)
[2021-06-09] MEDS ORDERED: Hydrocortisone Sodium Succinate 100 MG/2 ML SDV IVPUSH ONE (12:21)
[2021-06-09 12:43] LABS: BLOOD UREA NITROGEN,BUN 24 mg/dL (7.0-18.0); CARBON DIOXIDE,CO2 29.9 mmol/L (21.0-32.0); CHLORIDE,CL 103 mmol/L (98-107); GLUCOSE RANDOM 118 mg/dL (74-106); POTASSIUM,K 4.2 mmol/L (3.5-5.1); SODIUM,NA 138 mmol/L (136-145)
[2021-06-09 13:58] VITALS: BP 115/67; PULSE 66
== END 2021-06-09 13:59 | disposition home or self-care (01) ==
LOC: MW.ED 11:08
DX: R53.83 Other fatigue (principal); E05.00 Thyrotoxicosis with diffuse goiter without thyrotoxic crisis or storm; E27.1 Primary adrenocortical insufficiency; Z79.899 Other long term (current) drug therapy
CPT/HCPCS: 36415; 80053; 84439; 84443; 84484; 84703; 85025; 93005; 96374; 99283; J1720; J7030

== ENCOUNTER 2021-08-02 08:23 | Emergency (ER) | payer MEDICAID ==
[2021-08-02] MEDS ORDERED: LORazepam 2 MG/ML SDV IVPUSH ONE (08:32)
[2021-08-02] MEDS ORDERED: Sodium Chloride 0.9% 1,000 ML IV ONE (08:50)
[2021-08-02 09:38] LABS: BLOOD UREA NITROGEN,BUN 13 mg/dL (7.0-18.0); CARBON DIOXIDE,CO2 29.7 mmol/L (21.0-32.0); CHLORIDE,CL 104 mmol/L (98-107); GLUCOSE RANDOM 90 mg/dL (74-106); POTASSIUM,K 3.8 mmol/L (3.5-5.1); SODIUM,NA 142 mmol/L (136-145)
[2021-08-02] MEDS ORDERED: Iopamidol 755 MG/ML 500 ML Multipack Bottle IVPUSH STA (09:55)
[2021-08-02 11:07] VITALS: BP 110/84; PULSE 96
== END 2021-08-02 11:07 | disposition home or self-care (01) ==
LOC: MW.ED 08:23
DX: N39.0 Urinary tract infection, site not specified (principal); F41.9 Anxiety disorder, unspecified
CPT/HCPCS: 36415; 70491; 71045; 80053; 81001; 83735; 84703; 85025; 96374; 99285; J2060; J7030; Q9967

== ENCOUNTER 2021-10-05 10:14 | Emergency (ER) | payer MEDICAID ==
[2021-10-05] MEDS ORDERED: Sodium Chloride 0.9% 2.5 ML Syringe FLUSH PRN (10:32)
[2021-10-05] MEDS ORDERED: Sodium Chloride 0.9% 10 ML Syringe FLUSH PRN (10:32)
[2021-10-05] MEDS ORDERED: Sodium Chloride 0.9% 1,000 ML IV ONE (10:32)
[2021-10-05 11:32] LABS: BLOOD UREA NITROGEN,BUN 16 mg/dL (7.0-18.0); CARBON DIOXIDE,CO2 26.2 mmol/L (21.0-32.0); CHLORIDE,CL 102 mmol/L (98-107); GLUCOSE RANDOM 107 mg/dL (74-106); POTASSIUM,K 3.3 mmol/L (3.5-5.1); SODIUM,NA 138 mmol/L (136-145)
[2021-10-05] MEDS ORDERED: methylPREDNISolone Sodium Succinate 125 MG/2 ML SDV IVPUSH ONE (11:53)
[2021-10-05 13:47] VITALS: BP 107/65; PULSE 53
== END 2021-10-05 12:25 | disposition home or self-care (01) ==
LOC: MW.ED 10:14
DX: B34.9 Viral infection, unspecified (principal); Z79.899 Other long term (current) drug therapy; Z90.710 Acquired absence of both cervix and uterus
CPT/HCPCS: 36415; 80053; 81003; 82947; 83735; 84439; 84443; 84481; 85025; 93005; 96374; 99283; J2930; J3490; J7030

== ENCOUNTER 2021-11-30 16:33 | Emergency (ER) | payer MEDICAID ==
[2021-11-30] MEDS ORDERED: Sodium Chloride 0.9% 10 ML Syringe FLUSH PRN (17:14)
[2021-11-30] MEDS ORDERED: Sodium Chloride 0.9% 2.5 ML Syringe FLUSH PRN (17:14)
[2021-11-30] MEDS ORDERED: Sodium Chloride 0.9% 1,000 ML IV ONE (17:17)
[2021-11-30] MEDS ORDERED: Hydrocortisone Sodium Succinate 100 MG/2 ML SDV IVPUSH ONE (17:19)
[2021-11-30 17:54] LABS: CARBON DIOXIDE,CO2 30.3 mmol/L (21.0-32.0)
[2021-11-30 18:06] LABS: CORONAVIRUS COVID-19 NAA NEGATIVE (NEGATIVE); INFLUENZA A NAA NEGATIVE (NEGATIVE); INFLUENZA B NAA NEGATIVE (NEGATIVE)
[2021-11-30 19:02] VITALS: BP 113/67; PULSE 61
== END 2021-11-30 19:02 | disposition home or self-care (01) ==
LOC: MW.ED 16:33
DX: R53.1 Weakness (principal); R06.00 Dyspnea, unspecified; Z79.899 Other long term (current) drug therapy; Z20.822 Contact with and (suspected) exposure to COVID-19
CPT/HCPCS: 0240U; 36415; 71046; 80053; 84439; 84443; 84484; 84703; 85025; 85379; 93005; 96361; 96374; 99285; J1720; J3490; J7030; 93010; 99284

== ENCOUNTER 2022-06-29 20:27 | Emergency (ER) | payer MEDICAID ==
[2022-06-29] MEDS ORDERED: Morphine 4 MG/ML Syringe IVPUSH ONE (20:51)
[2022-06-29] MEDS ORDERED: Ondansetron 4 MG/2 ML SDV IVPUSH ONE (20:51)
[2022-06-29] MEDS ORDERED: Lactated Ringers 1,000 ML IV SCH (21:00)
[2022-06-29 21:48] LABS: CARBON DIOXIDE,CO2 29.5 mmol/L (21.0-32.0); POTASSIUM,K 3.8 mmol/L (3.5-5.1)
[2022-06-29 22:02] LABS: CORONAVIRUS COVID-19 NAA NEGATIVE (NEGATIVE); INFLUENZA A NAA NEGATIVE (NEGATIVE); INFLUENZA B NAA NEGATIVE (NEGATIVE); RESPIRATORY SYNCYTIAL VIR NAA NEGATIVE (NEGATIVE)
[2022-06-29] MEDS ORDERED: HYDROmorphone 1 MG/ML Syringe IVPUSH ONE (22:33)
[2022-06-29] MEDS ORDERED: Acetaminophen 325 MG Tab PO ONE (22:33)
[2022-06-29] MEDS ORDERED: Iopamidol 755 MG/ML 500 ML Multipack Bottle IVPUSH STA (23:26)
[2022-06-30 00:57] VITALS: BP 132/86; PULSE 78
== END 2022-06-30 00:57 | disposition home or self-care (01) ==
LOC: MW.ED 20:27
DX: K02.9 Dental caries, unspecified (principal); Z20.822 Contact with and (suspected) exposure to COVID-19
CPT/HCPCS: 0241U; 36415; 70488; 80053; 83605; 84703; 85025; 87040; 96361; 96374; 96375; 99283; A9270; J1170; J2270; J2405; J7120; Q9967

== ENCOUNTER 2022-09-19 13:22 | Emergency (ER) | payer MEDICAID ==
[2022-09-19] MEDS ORDERED: Ondansetron 4 MG/2 ML SDV IVPUSH ONE (14:00)
[2022-09-19] MEDS ORDERED: Sodium Chloride 0.9% 1,000 ML IV ONE (14:00)
[2022-09-19] MEDS ORDERED: Ketorolac 30 MG/ML SDV IVPUSH ONE (14:00)
[2022-09-19 15:53] VITALS: BP 118/71; PULSE 57
== END 2022-09-19 15:53 | disposition home or self-care (01) ==
LOC: MW.ED 13:22
DX: S09.90XA Unspecified injury of head, initial encounter (principal); Z79.899 Other long term (current) drug therapy; Z86.16 Personal history of COVID-19; Z90.710 Acquired absence of both cervix and uterus; W10.9XXA Fall (on) (from) unspecified stairs and steps, initial encounter
CPT/HCPCS: 70450; 72125; 96361; 96374; 96375; 99283; J1885; J2405; J7030

== ENCOUNTER 2023-04-04 19:18 | Emergency (ER) | payer MEDICAID ==
[2023-04-04] MEDS ORDERED: Sodium Chloride 0.9% 1,000 ML IV ONE (19:27)
[2023-04-04] MEDS ORDERED: Ketorolac 30 MG/ML SDV IVPUSH ONE (19:28)
[2023-04-04 19:38] LABS: BASOPHILS ABSOLUTE AUTO 0.05 K/uL (0.00-0.20); BASOPHILS PERCENT AUTO 0.6 % (0.0-1.0); HEMATOCRIT 36.4 % (37.0-47.0); HEMOGLOBIN 12.6 g/dL (12.0-16.0); IMMATURE GRAN ABSOLUTE AUTO 0.02 K/uL (0.00-0.05); IMMATURE GRAN PERCENT AUTO 0.2 % (0.0-0.4); LYMPHOCYTES ABSOLUTE AUTO 1.97 K/uL (1.00-4.80); LYMPHOCYTES PERCENT AUTO 24.3 % (24.0-44.0); MEAN CORPUSCULAR HEMOGLOBIN 30.4 pg (28.0-32.0); MEAN CORPUSCULAR HGB CONC 34.6 g/dL (32.0-36.0); MEAN CORPUSCULAR VOLUME 87.9 fL (83.0-99.0); MEAN PLATELET VOLUME 10.8 fL (9.4-12.3); MONOCYTES ABSOLUTE AUTO 0.33 K/uL (0.00-0.80); MONOCYTES PERCENT AUTO 4.1 % (0.0-8.0); NEUTROPHILS ABSOLUTE AUTO 5.74 K/uL (1.80-7.70); NEUTROPHILS PERCENT AUTO 70.8 % (41.0-71.0); PLATELET COUNT,PLT 236 K/uL (150-400); RED BLOOD CELL COUNT 4.14 M/uL (4.10-5.30); WHITE BLOOD CELL COUNT,WBC 8.11 K/uL (3.9-11.3)
[2023-04-04] MEDS ORDERED: Dexamethasone 4 MG/ML SDV IVPUSH ONE (19:51)
[2023-04-04 20:14] LABS: CORONAVIRUS COVID-19 NAA NEGATIVE (NEGATIVE); INFLUENZA A NAA NEGATIVE (NEGATIVE); INFLUENZA B NAA NEGATIVE (NEGATIVE); RESPIRATORY SYNCYTIAL VIR NAA NEGATIVE (NEGATIVE)
[2023-04-04 21:02] LABS: A/G RATIO 1.1 (0.9-1.6); ALBUMIN 3.5 g/dL (3.4-5.0); BILIRUBIN TOTAL 0.4 mg/dL (0.2-1.0); CALCIUM 8.4 mg/dL (8.5-10.1); CARBON DIOXIDE,CO2 25.8 mmol/L (21.0-32.0); CREATININE 0.7 mg/dL (0.6-1.0); EST CRCL DRUG DOSING (CG) 118.35 mL/min; POTASSIUM,K 3.4 mmol/L (3.5-5.1); PROTEIN TOTAL,TP 6.7 g/dL (6.4-8.2); T3 FREE 2.18 pg/mL (2.18-3.98); T4 FREE 0.81 ng/dL (0.76-1.46); TSH ULTRASENSITIVE 0.32 uIU/mL (0.36-3.74)
[2023-04-04] MEDS ORDERED: Potassium Chloride 20 MEQ Tab.ER PO ONE (21:14)
[2023-04-04 21:32] LABS: APPEARANCE,URINE CLEAR; BILIRUBIN,URINE NEGATIVE (NEGATIVE); COLOR,URINE YELLOW; GLUCOSE,URINE NEGATIVE (NEGATIVE); KETONES,URINE NEGATIVE (NEGATIVE); LEUKOCYTE ESTERASE,URINE NEGATIVE (NEGATIVE); NITRITE,URINE NEGATIVE (NEGATIVE); OCCULT BLOOD,URINE NEGATIVE (NEGATIVE); PROTEIN,URINE NEGATIVE (NEGATIVE); UROBILINOGEN,URINE 0.2 EU/dL (<2.0)
[2023-04-04 22:03] VITALS: BP 98/49; PULSE 54
== END 2023-04-04 22:02 | disposition home or self-care (01) ==
LOC: MW.ED 19:18
DX: R53.83 Other fatigue (principal); Z20.822 Contact with and (suspected) exposure to COVID-19; Z86.16 Personal history of COVID-19
CPT/HCPCS: 0241U; 36415; 80053; 81003; 84439; 84443; 84481; 84484; 85025; 93005; 96361; 96374; 96375; 99285; A9270; J1100; J1885; J7030; 93010; 99284

== ENCOUNTER 2024-02-08 23:54 | Emergency (ER) | payer BC ==
[2024-02-09] MEDS ORDERED: Sodium Chloride 0.9% 10 ML Syringe FLUSH PRN (00:10)
[2024-02-09] MEDS ORDERED: Sodium Chloride 0.9% 2.5 ML Syringe FLUSH PRN (00:10)
[2024-02-09 00:19] LABS: BASOPHILS ABSOLUTE AUTO 0.06 K/uL (0.00-0.20); BASOPHILS PERCENT AUTO 0.5 % (0.0-1.0); EOSINOPHILS ABSOLUTE AUTO 0.02 K/uL (0.00-0.45); EOSINOPHILS PERCENT AUTO 0.2 % (0.0-6.0); HEMATOCRIT 34.6 % (37.0-47.0); HEMOGLOBIN 11.8 g/dL (12.0-16.0); IMMATURE GRAN ABSOLUTE AUTO 0.03 K/uL (0.00-0.05); IMMATURE GRAN PERCENT AUTO 0.3 % (0.0-0.4); LYMPHOCYTES ABSOLUTE AUTO 3.73 K/uL (1.00-4.80); LYMPHOCYTES PERCENT AUTO 33.9 % (24.0-44.0); MEAN CORPUSCULAR HEMOGLOBIN 30.3 pg (28.0-32.0); MEAN CORPUSCULAR HGB CONC 34.1 g/dL (32.0-36.0); MEAN CORPUSCULAR VOLUME 88.9 fL (83.0-99.0); MEAN PLATELET VOLUME 10.8 fL (9.4-12.3); MONOCYTES ABSOLUTE AUTO 0.67 K/uL (0.00-0.80); MONOCYTES PERCENT AUTO 6.1 % (0.0-8.0); PLATELET COUNT,PLT 246 K/uL (150-400); RED BLOOD CELL COUNT 3.89 M/uL (4.10-5.30); WHITE BLOOD CELL COUNT,WBC 11.01 K/uL (3.9-11.3)
[2024-02-09] MEDS: Oxymetazoline 0.05% Nasal Spray 30 ML Bottle NAS ONE (00:22)
[2024-02-09] MEDS: Hydrocortisone Sodium Succinate 100 MG/2 ML SDV IVPUSH ONE (00:23)
[2024-02-09 00:42] VITALS: BP 115/72; PULSE 60
[2024-02-09 00:43] LABS: ALBUMIN 3.3 g/dL (3.4-5.0); BILIRUBIN TOTAL 0.4 mg/dL (0.2-1.0); CALCIUM 8.8 mg/dL (8.5-10.1); CREATININE 0.7 mg/dL (0.6-1.0); EST CRCL DRUG DOSING (CG) 117.12 mL/min; PROTEIN TOTAL,TP 6.6 g/dL (6.4-8.2)
[2024-02-09 00:50] LABS: POTASSIUM,K 3.5 mmol/L (3.5-5.1)
== END 2024-02-09 00:58 | disposition home or self-care (01) ==
LOC: MW.ED 23:54
DX: J02.9 Acute pharyngitis, unspecified (principal); R09.81 Nasal congestion; R52 Pain, unspecified; Z79.899 Other long term (current) drug therapy; Z75.8 Other problems related to medical facilities and other health care
CPT/HCPCS: 36415; 80053; 85025; 96374; 99284; A9270; J1720

== ENCOUNTER 2024-02-10 15:37 | Emergency (ER) | payer BC ==
[2024-02-10] MEDS: Ketorolac 30 MG/ML SDV IVPUSH ONE (16:25)
[2024-02-10] MEDS: Ondansetron 4 MG/2 ML SDV IVPUSH ONE (16:25)
[2024-02-10 16:27] LABS: BASOPHILS ABSOLUTE AUTO 0.03 K/uL (0.00-0.20); BASOPHILS PERCENT AUTO 0.2 % (0.0-1.0); HEMATOCRIT 34.4 % (37.0-47.0); HEMOGLOBIN 11.7 g/dL (12.0-16.0); IMMATURE GRAN ABSOLUTE AUTO 0.03 K/uL (0.00-0.05); IMMATURE GRAN PERCENT AUTO 0.2 % (0.0-0.4); LYMPHOCYTES ABSOLUTE AUTO 1.79 K/uL (1.00-4.80); LYMPHOCYTES PERCENT AUTO 14.3 % (24.0-44.0); MEAN CORPUSCULAR HEMOGLOBIN 29.8 pg (28.0-32.0); MEAN CORPUSCULAR VOLUME 87.8 fL (83.0-99.0); MEAN PLATELET VOLUME 10.1 fL (9.4-12.3); MONOCYTES ABSOLUTE AUTO 0.71 K/uL (0.00-0.80); MONOCYTES PERCENT AUTO 5.7 % (0.0-8.0); NEUTROPHILS ABSOLUTE AUTO 9.99 K/uL (1.80-7.70); NEUTROPHILS PERCENT AUTO 79.6 % (41.0-71.0); PLATELET COUNT,PLT 233 K/uL (150-400); RED BLOOD CELL COUNT 3.92 M/uL (4.10-5.30); WHITE BLOOD CELL COUNT,WBC 12.55 K/uL (3.9-11.3)
[2024-02-10 16:51] LABS: A/G RATIO 1.1 (0.9-1.6); ALANINE AMINOTRANSFERASE,ALT 16 IU/L (14-63); ALBUMIN 3.3 g/dL (3.4-5.0); ALKALINE PHOSPHATASE 52 U/L (46-116); ASPARTATE AMNIOTRANSFERASE,AST 14 IU/L (15-37); BILIRUBIN TOTAL 0.7 mg/dL (0.2-1.0); BLOOD UREA NITROGEN,BUN 11 mg/dL (7.0-18.0); CALCIUM 8.4 mg/dL (8.5-10.1); CARBON DIOXIDE,CO2 32.1 mmol/L (21.0-32.0); CHLORIDE,CL 102 mmol/L (98-107); CREATININE 0.8 mg/dL (0.6-1.0); ESTIMATED GFR 93 mL/min (>60); GLUCOSE RANDOM 101 mg/dL (74-106); POTASSIUM,K 3.4 mmol/L (3.5-5.1); PROTEIN TOTAL,TP 6.4 g/dL (6.4-8.2); SODIUM,NA 139 mmol/L (136-145)
[2024-02-10] MEDS: Sodium Chloride 0.9% 1,000 ML IV ONE (16:59)
[2024-02-10 17:43] LABS: CORONAVIRUS COVID-19 NAA NEGATIVE (NEGATIVE); INFLUENZA A NAA NEGATIVE (NEGATIVE); INFLUENZA B NAA NEGATIVE (NEGATIVE); RESPIRATORY SYNCYTIAL VIR NAA NEGATIVE (NEGATIVE)
[2024-02-10] MEDS: Acetaminophen/Butalbital/Caffeine 325-50-40 MG Tab PO ONE (20:05)
[2024-02-10 20:08] VITALS: BP 105/53; PULSE 70
== END 2024-02-10 20:08 | disposition home or self-care (01) ==
LOC: MW.ED 15:37
DX: J06.9 Acute upper respiratory infection, unspecified (principal); Z79.899 Other long term (current) drug therapy
CPT/HCPCS: 0241U; 36415; 71045; 80053; 85025; 86308; 96361; 96374; 96375; 99284; A9270; J1885; J2405; J7030

== ENCOUNTER 2024-04-01 15:26 | Emergency (ER) | payer BC ==
[2024-04-01 15:44] VITALS: BP 120/57
[2024-04-01] MEDS: Lidocaine 4% 1 each Patch TOP SCH (17:26)
[2024-04-01 17:35] VITALS: PULSE 69
== END 2024-04-01 17:31 | disposition home or self-care (01) ==
LOC: MW.ED 15:26
DX: S29.9XXA Unspecified injury of thorax, initial encounter (principal); Z75.8 Other problems related to medical facilities and other health care; W19.XXXA Unspecified fall, initial encounter
CPT/HCPCS: 71101; 99283; A9270

== ENCOUNTER 2024-05-18 15:52 | Emergency (ER) | payer BC | END 2024-05-18 16:30 | disposition left against medical advice (07) | LOC: MW.ED 15:52 | DX: Z53.21 Procedure and treatment not carried out due to patient leaving prior to being seen by health care provider (principal) ==

== ENCOUNTER 2024-08-20 11:26 | Emergency (ER) | payer OTHER, BC ==
[2024-08-20 13:03] LABS: BASOPHILS ABSOLUTE AUTO 0.06 K/uL (0.00-0.20); BASOPHILS PERCENT AUTO 0.6 % (0.0-1.0); HEMATOCRIT 44.4 % (37.0-47.0); HEMOGLOBIN 15.1 g/dL (12.0-16.0); IMMATURE GRAN ABSOLUTE AUTO 0.04 K/uL (0.00-0.05); IMMATURE GRAN PERCENT AUTO 0.4 % (0.0-0.4); LYMPHOCYTES ABSOLUTE AUTO 2.95 K/uL (1.00-4.80); LYMPHOCYTES PERCENT AUTO 27.2 % (24.0-44.0); MEAN CORPUSCULAR HEMOGLOBIN 30.3 pg (28.0-32.0); MEAN CORPUSCULAR VOLUME 89.2 fL (83.0-99.0); MONOCYTES ABSOLUTE AUTO 0.28 K/uL (0.00-0.80); MONOCYTES PERCENT AUTO 2.6 % (0.0-8.0); NEUTROPHILS ABSOLUTE AUTO 7.52 K/uL (1.80-7.70); NEUTROPHILS PERCENT AUTO 69.2 % (41.0-71.0); PLATELET COUNT,PLT 298 K/uL (150-400); RED BLOOD CELL COUNT 4.98 M/uL (4.10-5.30); WHITE BLOOD CELL COUNT,WBC 10.85 K/uL (3.9-11.3)
[2024-08-20] MEDS: Sodium Chloride 0.9% 1,000 ML IV ONE (13:17)
[2024-08-20] MEDS: Ondansetron 4 MG/2 ML SDV IVPUSH ONE (13:17)
[2024-08-20 13:32] LABS: A/G RATIO 1.1 (0.9-1.6); ALANINE AMINOTRANSFERASE,ALT 32 IU/L (14-63); ALBUMIN 4.1 g/dL (3.4-5.0); ALKALINE PHOSPHATASE 74 U/L (46-116); ASPARTATE AMNIOTRANSFERASE,AST 31 IU/L (15-37); BILIRUBIN TOTAL 0.5 mg/dL (0.2-1.0); BLOOD UREA NITROGEN,BUN 24 mg/dL (7.0-18.0); CALCIUM 9.7 mg/dL (8.5-10.1); CARBON DIOXIDE,CO2 28.3 mmol/L (21.0-32.0); CHLORIDE,CL 101 mmol/L (98-107); GLUCOSE RANDOM 113 mg/dL (74-106); LIPASE 59 U/L (16-77); POTASSIUM,K 4.8 mmol/L (3.5-5.1); PROTEIN TOTAL,TP 7.9 g/dL (6.4-8.2); SODIUM,NA 138 mmol/L (136-145); TSH ULTRASENSITIVE 7.06 uIU/mL (0.36-3.74)
[2024-08-20 13:33] LABS: ESTIMATED GFR 70 mL/min (>60)
[2024-08-20 13:49] LABS: T4 FREE 0.34 ng/dL (0.76-1.46)
[2024-08-20 14:44] VITALS: BP 116/70; PULSE 62
== END 2024-08-20 14:44 | disposition home or self-care (01) ==
LOC: MW.ED 11:26
DX: R53.83 Other fatigue (principal); E03.9 Hypothyroidism, unspecified; Z75.3 Unavailability and inaccessibility of health-care facilities; Z79.899 Other long term (current) drug therapy; Z79.890 Hormone replacement therapy
CPT/HCPCS: 36415; 80053; 81025; 83690; 83735; 84439; 84443; 85025; 93005; 96361; 96374; 96375; 99284; J1100; J2405; J7030; 93010